=== PATIENT | female | born 1935 | race African-American/Black ===

== ENCOUNTER → 2016-07-18 | Outpatient (CLI) | payer MEDICARE, MEDICAID ==
[2016-07-18 11:16] LABS: ABSOLUTE EOSINOPHILS # (AUTO) 0.4 10^3/uL (0.0-0.6); ABSOLUTE LYMPHOCYTES (AUTO) 2.2 10^3/uL (0.5-4.7); ABSOLUTE MONOCYTES (AUTO) 0.5 10^3/uL (0.1-1.4); ABSOLUTE NEUT (AUTO) 3.7 10^3/uL (1.7-8.2); BASOPHILS % (AUTO) 0.7 % (0-2); EOSINOPHILS % (AUTO) 6.3 % (0-6); MEAN CORPUSCULAR HEMOGLOBIN 28.9 pg (27.0-33.4); MEAN CORPUSCULAR HGB CONC 32.4 g/dL (32.0-36.0); MEAN CORPUSCULAR VOLUME 89 fl (80-97); MONOCYTES % (AUTO) 6.7 % (3-13); RED BLOOD COUNT 4.14 10^6/uL (3.72-5.28); RED CELL DISTRIBUTION WIDTH 14.2 % (11.5-14.0); SEGMENTED NEUTROPHILS % (AUTO) 54.3 % (42-78); WHITE BLOOD COUNT 6.8 10^3/uL (4.0-10.5)
[2016-07-18 11:41] LABS: ALANINE AMINOTRANSFERASE 27 U/L (9-52); ALBUMIN 4.4 g/dL (3.5-5.0); ALKALINE PHOSPHATASE 73 U/L (38-126); ANION GAP 16 (5-19); ASPARTATE AMINO TRANSFERASE 24 U/L (14-36); BILIRUBIN,DIRECT 0.2 mg/dL (0.0-0.4); BILIRUBIN,TOTAL 0.7 mg/dL (0.2-1.3); BLOOD UREA NITROGEN 29 mg/dL (7-20); CALCIUM 10.3 mg/dL (8.4-10.2); CARBON DIOXIDE 21 mmol/L (22-30); CHLORIDE 109 mmol/L (98-107); CHOLESTEROL 198.29 mg/dL (0-200); CREATININE RESULT 0.92 mg/dL (0.52-1.25); Direct HDL 84 mg/dL (>40); GLUCOSE 83 mg/dL (75-110); POTASSIUM 4.6 mmol/L (3.6-5.0); SODIUM 146.2 mmol/L (137-145); TOTAL PROTEIN 7.9 g/dL (6.3-8.2); TRIGLYCERIDES 82 mg/dL (<150)
[2016-07-18 11:57] LABS: DIRECT LDL 65 mg/dL (<100)
[2016-07-19 12:38] LABS: CREATININE URINE 19.1 mg/dL (Not Estab.)
[2016-07-19 13:48] LABS: MICROALBUMIN URINE <3.0 ug/mL (Not Estab.)
== END ==
LOC: OD 10:00
PROVIDERS: ATTEND Internal Medicine
DX: I10 Essential (primary) hypertension (principal); E78.2 Mixed hyperlipidemia; Z79.899 Other long term (current) drug therapy
CPT/HCPCS: 36415; 80053; 80061; 82043; 82306; 82570; 83036; 84443; 85025

== ENCOUNTER → 2016-11-22 | Outpatient (CLI) | payer MEDICARE, MEDICAID ==
--- NOTE | 2016-11-22 16:09 | WOMENS IMAGING REPORT ---
EXAM DESCRIPTION: BILAT SCREENING MAMMO W/CAD COMPLETED DATE/TIME: 11/22/2016 10:30 am REASON FOR STUDY: SCREENING MAMMO Z12.31 Z12.31 ENCNTR SCREEN MAMMOGRAM FOR MALIGNANT NEOPLASM OF B RE COMPARISON: Multiple since 2008 TECHNIQUE: Standard craniocaudal and mediolateral oblique views of each breast recorded using DNA SEQa l acquisition. LIMITATIONS: None. FINDINGS: Findings present which are benign by mammographic criteria. No suspicious masses, calcifi cations or architectural distortion. Pertinent benign findings: Stable bilateral benign breast parenchymal nodules, benign breast parenchy mal calcifications, and arterial vascular calcifications. Read with the assistance of CAD. .[facility] - R2 Cenova Version 1.3 .[facility] Imaging - R2 Cenova Version 1.3 .[facility] - R2 Cenova Version 2.4 .[facility] [place] - R2 Cenova Version 2.4 .[facility] - R2 Ski Production Supervisor Version 9.2 Benign mammographic findings may include one or more of the following: Smooth masses, popcorn/rim/co arse calcifications, asymmetries, post-procedure changes, and lesions with long-standing stability. IMPRESSION: BENIGN MAMMOGRAPHIC FINDINGS. BIRADS 2 BREAST DENSITY: c. The breasts are heterogeneously dense, which may obscure small masses. BIRAD: 2 BENIGN FINDING(S) RECOMMENDATION: ROUTINE SCREENING Please consider bilateral screening tomosynthesis in November 2017 COMMENT: The patient has been notified of the results by letter per SA requirements. Additional no tification policies are in place for contacting patient with suspicious or incomplete findings. Quality ID #225: The [employer] recommends an annual screening mammogram for women aged 40 years or over. This facility utilizes a reminder system to ensure that all patients receive reminder letters, and/or direct phone calls for appointments. This includes reminders for routine scr eening mammograms, diagnostic mammograms, or other Breast Imaging Interventions when appropriate. Th is patient will be placed in the appropriate reminder system. The [employer] (ACR) has developed recommendations for screening MRI of the breast s in certain patient populations, to be used in conjunction with mammography. Breast MRI surveillanc e may be appropriate for women with more than 20% lifetime risk of developing breast cancer as deter mined by genetic testing, significant family history of the disease, or history of mantle radiation f or Hodgkins Disease. ACR Practice Guidelines 2008. TECHNICAL DOCUMENTATION: FINDING NUMBER: (1) ASSESSMENT: (1) JOB ID: [id number] [employer]- All Rights Reserved
== END ==
LOC: RAD 10:08
PROVIDERS: ATTEND Internal Medicine
DX: Z12.31 Encounter for screening mammogram for malignant neoplasm of breast (principal)
CPT/HCPCS: 77067; G0202

== ENCOUNTER → 2017-05-09 | Outpatient (CLI) | payer MEDICARE, MEDICAID ==
[2017-05-09 08:13] LABS: ABSOLUTE BASOPHILS # (AUTO) 0.1 10^3/uL (0.0-0.2); ABSOLUTE EOSINOPHILS # (AUTO) 0.4 10^3/uL (0.0-0.6); ABSOLUTE LYMPHOCYTES (AUTO) 2.9 10^3/uL (0.5-4.7); ABSOLUTE MONOCYTES (AUTO) 0.8 10^3/uL (0.1-1.4); ABSOLUTE NEUT (AUTO) 5.3 10^3/uL (1.7-8.2); BASOPHILS % (AUTO) 0.7 % (0-2); EOSINOPHILS % (AUTO) 4.5 % (0-6); HEMATOCRIT 35.5 % (36.0-47.0); HEMOGLOBIN 11.4 g/dL (12.0-15.5); LYMPHOCYTES % (AUTO) 30.5 % (13-45); MEAN CORPUSCULAR HEMOGLOBIN 28.8 pg (27.0-33.4); MEAN CORPUSCULAR VOLUME 90 fl (80-97); MONOCYTES % (AUTO) 8.1 % (3-13); PLATELET COUNT 279 10^3/uL (150-450); RED BLOOD COUNT 3.94 10^6/uL (3.72-5.28); RED CELL DISTRIBUTION WIDTH 13.4 % (11.5-14.0); SEGMENTED NEUTROPHILS % (AUTO) 56.2 % (42-78); TOTAL CELLS COUNTED % (AUTO) 100 %; WHITE BLOOD COUNT 9.5 10^3/uL (4.0-10.5)
[2017-05-09 08:40] LABS: ALANINE AMINOTRANSFERASE 30 U/L (9-52); ALBUMIN 4.1 g/dL (3.5-5.0); ALKALINE PHOSPHATASE 74 U/L (38-126); ANION GAP 10 (5-19); ASPARTATE AMINO TRANSFERASE 23 U/L (14-36); BILIRUBIN,DIRECT 0.2 mg/dL (0.0-0.4); BILIRUBIN,TOTAL 0.5 mg/dL (0.2-1.3); BLOOD UREA NITROGEN 39 mg/dL (7-20); CALCIUM 10.5 mg/dL (8.4-10.2); CARBON DIOXIDE 25 mmol/L (22-30); CHLORIDE 107 mmol/L (98-107); GLUCOSE 82 mg/dL (75-110); POTASSIUM 4.9 mmol/L (3.6-5.0); SODIUM 142.2 mmol/L (137-145); TOTAL PROTEIN 7.2 g/dL (6.3-8.2); TRIGLYCERIDES 65 mg/dL (<150)
[2017-05-09 08:51] LABS: DIRECT LDL 54 mg/dL (<100)
[2017-05-10 12:39] LABS: CREATININE URINE 19.5 mg/dL (Not Estab.)
[2017-05-10 13:12] LABS: MICROALBUMIN URINE <3.0 ug/mL (Not Estab.)
== END ==
LOC: OD 07:27
PROVIDERS: ATTEND Internal Medicine
DX: E78.2 Mixed hyperlipidemia (principal); I10 Essential (primary) hypertension; Z13.21 Encounter for screening for nutritional disorder; E08.42 Diabetes mellitus due to underlying condition with diabetic polyneuropathy; Z13.29 Encounter for screening for other suspected endocrine disorder
CPT/HCPCS: 36415; 80053; 80061; 82043; 82306; 82570; 83036; 84443; 85025

== ENCOUNTER → 2017-11-23 | Outpatient (CLI) | payer MEDICARE, MEDICAID ==
--- NOTE | 2017-11-23 12:15 | WOMENS IMAGING REPORT ---
EXAM DESCRIPTION: BILAT SCREENING MAMMO W/CAD COMPLETED DATE/TIME: 11/23/2017 10:44 am REASON FOR STUDY: SCREENING MAMMO Z12.31 ENCNTR SCREEN MAMMOGRAM FOR MALIGNANT NEOPLASM OF OSIRIS COMPARISON: 11/22/2016 and 11/17/2015. TECHNIQUE: Standard craniocaudal and mediolateral oblique views of each breast recorded using XYDOa l acquisition. LIMITATIONS: None. FINDINGS: Findings present which are benign by mammographic criteria. No suspicious masses, calcifi cations or architectural distortion. Pertinent benign findings: Stable circumscribed nodules and calcifications. Read with the assistance of CAD. .[facility] - R2 Cenova Version 1.3 .[facility] Imaging - R2 Cenova Version 1.3 .[facility] Imaging - R2 Cenova Version 2.4 .[facility] - R2 Cenova Version 2.4 .[facility] - R2 Bilingual Patient Support Caseworker Version 9.2 Benign mammographic findings may include one or more of the following: Smooth masses, popcorn/rim/co arse calcifications, asymmetries, post-procedure changes, and lesions with long-standing stability. IMPRESSION: BENIGN MAMMOGRAPHIC FINDINGS. BIRADS 2 BREAST DENSITY: c. The breasts are heterogeneously dense, which may obscure small masses. BIRAD: 2 BENIGN FINDING(S) RECOMMENDATION: ROUTINE SCREENING COMMENT: The patient has been notified of the results by letter per SA requirements. Additional no tification policies are in place for contacting patient with suspicious or incomplete findings. Quality ID #225: The [employer] recommends an annual screening mammogram for women aged 40 years or over. This facility utilizes a reminder system to ensure that all patients receive reminder letters, and/or direct phone calls for appointments. This includes reminders for routine scr eening mammograms, diagnostic mammograms, or other Breast Imaging Interventions when appropriate. Th is patient will be placed in the appropriate reminder system. The [employer] (ACR) has developed recommendations for screening MRI of the breast s in certain patient populations, to be used in conjunction with mammography. Breast MRI surveillanc e may be appropriate for women with more than 20% lifetime risk of developing breast cancer as deter mined by genetic testing, significant family history of the disease, or history of mantle radiation f or Hodgkins Disease. ACR Practice Guidelines 2008. TECHNICAL DOCUMENTATION: FINDING NUMBER: (1) ASSESSMENT: (1) JOB ID: [id number] [employer]- All Rights Reserved Reading location - IP/workstation name: [email or web address]
== END ==
LOC: WI 10:08
PROVIDERS: ATTEND Internal Medicine
DX: Z12.31 Encounter for screening mammogram for malignant neoplasm of breast (principal)
CPT/HCPCS: 77067

== ENCOUNTER → 2018-02-04 | Outpatient (CLI) | payer MEDICARE, MEDICAID ==
[2018-02-04 11:10] LABS: ABSOLUTE EOSINOPHILS # (AUTO) 0.2 10^3/uL (0.0-0.6); ABSOLUTE LYMPHOCYTES (AUTO) 1.8 10^3/uL (0.5-4.7); ABSOLUTE MONOCYTES (AUTO) 0.6 10^3/uL (0.1-1.4); ABSOLUTE NEUT (AUTO) 3.7 10^3/uL (1.7-8.2); BASOPHILS % (AUTO) 0.7 % (0-2); EOSINOPHILS % (AUTO) 2.8 % (0-6); HEMATOCRIT 35.4 % (36.0-47.0); HEMOGLOBIN 11.5 g/dL (12.0-15.5); LYMPHOCYTES % (AUTO) 28.8 % (13-45); MEAN CORPUSCULAR HEMOGLOBIN 28.9 pg (27.0-33.4); MEAN CORPUSCULAR HGB CONC 32.5 g/dL (32.0-36.0); MEAN CORPUSCULAR VOLUME 89 fl (80-97); MONOCYTES % (AUTO) 8.9 % (3-13); PLATELET COUNT 292 10^3/uL (150-450); RED BLOOD COUNT 3.99 10^6/uL (3.72-5.28); RED CELL DISTRIBUTION WIDTH 13.3 % (11.5-14.0); SEGMENTED NEUTROPHILS % (AUTO) 58.8 % (42-78); TOTAL CELLS COUNTED % (AUTO) 100 %; WHITE BLOOD COUNT 6.3 10^3/uL (4.0-10.5)
[2018-02-04 11:28] LABS: ALANINE AMINOTRANSFERASE 21 U/L (9-52); ALBUMIN 4.3 g/dL (3.5-5.0); ALKALINE PHOSPHATASE 70 U/L (38-126); ANION GAP 10 (5-19); ASPARTATE AMINO TRANSFERASE 22 U/L (14-36); BILIRUBIN,DIRECT 0.2 mg/dL (0.0-0.4); BILIRUBIN,TOTAL 0.6 mg/dL (0.2-1.3); BLOOD UREA NITROGEN 28 mg/dL (7-20); CALCIUM 10.3 mg/dL (8.4-10.2); CARBON DIOXIDE 28 mmol/L (22-30); CHLORIDE 103 mmol/L (98-107); CHOLESTEROL 167.68 mg/dL (0-200); GLUCOSE 99 mg/dL (75-110); SODIUM 140.9 mmol/L (137-145); TOTAL PROTEIN 7.6 g/dL (6.3-8.2); TRIGLYCERIDES 66 mg/dL (<150)
[2018-02-04 11:39] LABS: DIRECT LDL 54 mg/dL (<100)
[2018-02-04 11:44] LABS: FREE T4 (FREE THYROXINE) 1.15 ng/dL (0.78-2.19)
[2018-02-04 11:58] LABS: THYROID STIMULATING HORMONE 0.8 uIU/mL (0.47-4.68)
[2018-02-05 13:37] LABS: CREATININE URINE 30.1 mg/dL (Not Estab.); MICROALBUMIN URINE <3.0 ug/mL (Not Estab.)
== END ==
LOC: OD 09:53
PROVIDERS: ATTEND Internal Medicine
DX: E78.2 Mixed hyperlipidemia (principal); I10 Essential (primary) hypertension; Z13.21 Encounter for screening for nutritional disorder; Z13.29 Encounter for screening for other suspected endocrine disorder; E11.9 Type 2 diabetes mellitus without complications
CPT/HCPCS: 36415; 80053; 80061; 82043; 82306; 82570; 83036; 84439; 84443; 85025

== ENCOUNTER → 2018-10-04 | Outpatient (CLI) | payer MEDICARE, MEDICAID ==
[2018-10-04 08:39] LABS: ABSOLUTE EOSINOPHILS # (AUTO) 0.2 10^3/uL (0.0-0.6); ABSOLUTE MONOCYTES (AUTO) 0.6 10^3/uL (0.1-1.4); TOTAL CELLS COUNTED % (AUTO) 100 %
[2018-10-04 08:50] LABS: ABSOLUTE LYMPHOCYTES (AUTO) 1.8 10^3/uL (0.5-4.7); ABSOLUTE NEUT (AUTO) 3.8 10^3/uL (1.7-8.2); BASOPHILS % (AUTO) 0.6 % (0-2); EOSINOPHILS % (AUTO) 3.7 % (0-6); HEMATOCRIT 34.8 % (36.0-47.0); HEMOGLOBIN 11.5 g/dL (12.0-15.5); LYMPHOCYTES % (AUTO) 28.2 % (13-45); MEAN CORPUSCULAR HEMOGLOBIN 29.5 pg (27.0-33.4); MEAN CORPUSCULAR HGB CONC 32.9 g/dL (32.0-36.0); MEAN CORPUSCULAR VOLUME 90 fl (80-97); MONOCYTES % (AUTO) 8.7 % (3-13); PLATELET COUNT 272 10^3/uL (150-450); RED BLOOD COUNT 3.88 10^6/uL (3.72-5.28); RED CELL DISTRIBUTION WIDTH 13.2 % (11.5-14.0); SEGMENTED NEUTROPHILS % (AUTO) 58.8 % (42-78); WHITE BLOOD COUNT 6.4 10^3/uL (4.0-10.5)
[2018-10-04 08:59] LABS: ALANINE AMINOTRANSFERASE 25 U/L (9-52); ALBUMIN 4.3 g/dL (3.5-5.0); ALKALINE PHOSPHATASE 75 U/L (38-126); ANION GAP 10 (5-19); ASPARTATE AMINO TRANSFERASE 22 U/L (14-36); BILIRUBIN,DIRECT 0.2 mg/dL (0.0-0.4); BILIRUBIN,TOTAL 0.5 mg/dL (0.2-1.3); BLOOD UREA NITROGEN 40 mg/dL (7-20); CALCIUM 10.1 mg/dL (8.4-10.2); CARBON DIOXIDE 25 mmol/L (22-30); CHLORIDE 107 mmol/L (98-107); CHOLESTEROL 173.72 mg/dL (0-200); GLUCOSE 84 mg/dL (75-110); POTASSIUM 4.3 mmol/L (3.6-5.0); SODIUM 141.6 mmol/L (137-145); TOTAL PROTEIN 7.5 g/dL (6.3-8.2); TRIGLYCERIDES 68 mg/dL (<150)
[2018-10-04 09:10] LABS: DIRECT LDL 58 mg/dL (<100)
[2018-10-04 09:14] LABS: FREE T4 (FREE THYROXINE) 1.31 ng/dL (0.78-2.19)
[2018-10-04 09:28] LABS: THYROID STIMULATING HORMONE 0.96 uIU/mL (0.47-4.68)
[2018-10-05 10:37] LABS: CREATININE URINE 22.1 mg/dL (Not Estab.); MICROALBUMIN URINE 15.6 ug/mL (Not Estab.)
== END ==
LOC: OD 07:31
PROVIDERS: ATTEND Internal Medicine
DX: Z00.00 Encounter for general adult medical examination without abnormal findings (principal); Z13.21 Encounter for screening for nutritional disorder; E11.9 Type 2 diabetes mellitus without complications; E78.2 Mixed hyperlipidemia; I10 Essential (primary) hypertension
CPT/HCPCS: 36415; 80053; 80061; 82043; 82306; 82570; 83036; 84439; 84443; 85025

== ENCOUNTER → 2018-11-28 | Outpatient (CLI) | payer MEDICARE, MEDICAID ==
--- NOTE | 2018-11-28 14:36 | WOMENS IMAGING REPORT ---
EXAM DESCRIPTION: BILAT SCREENING MAMMO W/CAD COMPLETED DATE/TIME: 11/28/2018 10:09 am REASON FOR STUDY: Z12.31ENCOUNTER FOR SCREENING MAMMOGRAM FOR MALIGNANT NEOPLASM OF BREAST Z12.31 E NCNTR SCREEN MAMMOGRAM FOR MALIGNANT NEOPLASM OF OSIRIS COMPARISON: 11/23/2017 and 11/22/2016. EXAM PARAMETERS: Standard craniocaudal and mediolateral oblique views of each breast recorded using digital acquisition. Read with the assistance of CAD. .[facility] - Hr Business Partner Consultant Version 9.2 LIMITATIONS: None. FINDINGS: Findings present which are benign by mammographic criteria. No suspicious masses, calcifi cations or architectural distortion. Pertinent benign findings: Benign calcifications. Benign mammographic findings may include one or more of the following: Smooth masses, popcorn/rim/co arse calcifications, asymmetries, post-procedure changes, and lesions with long-standing stability. IMPRESSION: BENIGN MAMMOGRAPHIC FINDINGS. BIRADS 2 BREAST DENSITY: c. The breasts are heterogeneously dense, which may obscure small masses. BIRAD: ASSESSMENT: 2 BENIGN FINDING(S) RECOMMENDATION: ROUTINE SCREENING COMMENT: The patient has been notified of the results by letter per SA requirements. Additional no tification policies are in place for contacting patient with suspicious or incomplete findings. Quality ID #225: The [employer] recommends an annual screening mammogram for women aged 40 years or over. This facility utilizes a reminder system to ensure that all patients receive reminder letters, and/or direct phone calls for appointments. This includes reminders for routine scr eening mammograms, diagnostic mammograms, or other Breast Imaging Interventions when appropriate. Th is patient will be placed in the appropriate reminder system. TECHNICAL DOCUMENTATION: FINDING NUMBER: (1) ASSESSMENT: (1) JOB ID: [id number] [employer]- All Rights Reserved Reading location - IP/workstation name: [facility]NAGER DAT[facility]RI[email or web address]
== END ==
LOC: WI 09:40
PROVIDERS: ATTEND Internal Medicine
DX: Z12.31 Encounter for screening mammogram for malignant neoplasm of breast (principal)
CPT/HCPCS: 77067

== ENCOUNTER 2019-04-29 19:57 | Emergency (ER) | payer MEDICARE, MEDICAID ==
--- NOTE | 2019-04-29 20:37 | ER Document Report ---
HPI - HPI Time Seen by Provider: 04/29/19 20:18 Pain Level: 0 Notes: 84-year-old female patient presents to the emergency department with her daughter with concerns for high blood pressure. Patient apparently takes antihypertensives, she has been seeing her primary care for this and he recently changed her from oral clonidine to transdermal clonidine. She states that earlier this afternoon her blood pressure was high at home. Today in the emergency department her blood pressure is normal. She denies any chest pain, shortness of breath or headache. She states that she overall feels very well. - REPRODUCTIVE Reproductive: DENIES: : Past Medical History - General Information source: Patient - Social History Smoking Status: Never Smoker Chew tobacco use (# tins/day): No Drug Abuse: None Family History: Reviewed & Not Pertinent Patient has suicidal ideation: No Patient has homicidal ideation: No - Past Medical History Cardiac Medical History: Reports: Hx Hypertension Endocrine Medical History: Reports: Hx Diabetes Mellitus Type 2 Musculoskeletal Medical History: Reports Hx Arthritis - Immunizations Hx Diphtheria, Pertussis, Tetanus Vaccination: No Vertical Provider Document - CONSTITUTIONAL Notes: PHYSICAL EXAMINATION: GENERAL: Well-appearing, appears younger than stated age, well-nourished and in no acute distress. HEAD: Atraumatic, normocephalic. EYES: Pupils equal round and reactive to light, extraocular movements intact, conjunctiva are normal. ENT: Nares patent, oropharynx clear without exudates. Moist mucous membranes. NECK: Normal range of motion, supple without lymphadenopathy LUNGS: Breath sounds clear to auscultation bilaterally and equal. No wheezes rales or rhonchi. HEART: Regular rate and rhythm without murmurs ABDOMEN: Soft, nontender. Female : deferred Musculoskeletal: Normal range of motion, no pitting or edema. No cyanosis. NEUROLOGICAL: Cranial nerves grossly intact. Normal speech, normal gait. Normal sensory, motor exams PSYCH: Normal mood, normal affect. SKIN: Warm, Dry, normal turgor, no rashes or lesions noted. - INFECTION CONTROL TRAVEL OUTSIDE OF THE [place] IN LAST 30 DAYS: No Course - Re-evaluation Re-evalutation: Overall very well-appearing 84-year-old female who has asymptomatic hypertension. Today her blood pressure was initially 140 systolic. I did repeat this myself and got another that was 150 systolic. Patient denies any chest pain, shortness of breath or headache. She states that she feels well. Lengthy discussion was had with patient and daughter, I also discussed this with my attending physician. We will not need to draw labs or do any work-up at this time. The most appropriate thing for her to do is to go back to her primary child care aide for further management of her chronic hypertension. Patient and family member verbalized understanding and agreement with this plan. - Vital Signs Vital signs: Temp Pulse Resp BP Pulse Ox 98.3 F 72 18 144/82 H 97 04/29/19 20:04 04/29/19 20:04 04/29/19 20:04 04/29/19 20:04 04/29/19 20:04 Discharge - Discharge Clinical Impression: Elevated blood pressure reading Condition: Stable Disposition: HOME, SELF-CARE Additional Instructions: You were seen in the emergency department with concerns of elevated blood pressure. Today in the emergency department your blood pressure readings were not in the danger zone. Please call your primary care provider tomorrow to schedule a follow-up. That is the most appropriate way to manage your blood pressure. If you become symptomatic that is having chest pain, shortness of breath or headache please return to the emergency department. Referrals: CHARITY ANDRES MD [Primary Care Provider] - Follow up as needed
[2019-04-29 20:39] VITALS: BP 164/62
== END 2019-04-29 20:42 | disposition home or self-care (01) ==
LOC: ER 19:57
DX: I10 Essential (primary) hypertension (principal); E11.9 Type 2 diabetes mellitus without complications; Z79.899 Other long term (current) drug therapy
CPT/HCPCS: 99283

== ENCOUNTER 2019-05-15 12:51 | Emergency (ER) | payer MEDICARE, MEDICAID ==
--- NOTE | 2019-05-15 13:40 | ER Document Report ---
ED Medical Screen (RME) - General Chief Complaint: Blood Pressure Problem Stated Complaint: HIGH BLOOD PRESSURE Time Seen by Provider: 05/15/19 13:32 Primary Care Provider: CHARITY ANDRES MD [Primary Care Provider] - Follow up as needed TRAVEL OUTSIDE OF THE [place] IN LAST 30 DAYS: No - HPI Notes: 05/15/19 13:42 84-year-old female to the emergency department with daughter with complaints of poorly controlled blood pressure for the past month. She states that her blood pressure started to run in the 226 I like the beginning of the month and her primary care physician has been trying to get it under control. She does have a history of high blood pressure and was controlled on losartan and HCTZ. However once her blood pressure was not well controlled she has been having some difficulty finding a medicine that works for her that does not give her side effects. She initially was placed on clonidine tablets and then switched to clonidine patch. These did not work. Most recently about a week ago her primary care physician put her on labetalol but that also did not help and she had side effects. She was then started on metoprolol several days ago. She states that despite all these changes her blood pressure is still not been well controlled and last night she started to have symptoms that were concerning. She states that she is dizzy and she feels like her tongue is heavy. She also states that she has shortness of breath. She states that she has had some difficulty with her speech for about a month now but she feels like it may be has been getting worse over the past week. She admits to episode of chest pain on this past Sunday but none since. I performed a brief medical screening exam on the patient determined that she will need further evaluation and management by main side provider. I have initiated orders to help expedite her care. - Related Data Allergies/Adverse Reactions: No Known Allergies Allergy (Verified 05/15/19 13:29) Past Medical History - Past Medical History Cardiac Medical History: Reports: Hx Hypertension Endocrine Medical History: Reports: Hx Diabetes Mellitus Type 2 Musculoskeltal Medical History: Reports Hx Arthritis - Immunizations Hx Diphtheria, Pertussis, Tetanus Vaccination: No Physical Exam - Vital signs Vitals: Temp Pulse Resp BP Pulse Ox 98.0 F 93 16 206/96 H 95 05/15/19 13:03 05/15/19 13:03 05/15/19 13:03 05/15/19 13:03 05/15/19 13:03 Course - Vital Signs Vital signs: Temp Pulse Resp BP Pulse Ox 98.0 F 93 16 206/96 H 95 05/15/19 13:03 05/15/19 13:03 05/15/19 13:03 05/15/19 13:03 05/15/19 13:03 Doctor's Discharge - Discharge Referrals: CHARITY ANDRES MD [Primary Care Provider] - Follow up as needed
--- NOTE | 2019-05-15 14:25 | RADIOLOGY REPORT (SQ) ---
EXAM DESCRIPTION: CT HEAD WITHOUT COMPLETED DATE/TIME: 05/15/2019 2:13 pm REASON FOR STUDY: elevated BP, lightheadedness, tongue heaviness COMPARISON: 11/21/2013 TECHNIQUE: Axial images acquired through the brain without intravenous contrast. Images reviewed wi th bone, brain and subdural windows. Additional sagittal and coronal reconstructions were generated. Images stored on PACS. All CT scanners at this facility use dose modulation, iterative reconstruction, and/or weight based d osing when appropriate to reduce radiation dose to as low as reasonably achievable (ALARA). [facility]: Dose Right [facility]: CareDose [facility]: Dose Right [facility]: Teradose 4D [facility]: Smart Alive Juices RADIATION DOSE: CT Rad equipment meets quality standard of care and radiation dose reduction techniq ues were employed. CTDIvol: 53.2 mGy. DLP: 1044 mGy-cm. mGy. LIMITATIONS: None. FINDINGS: VENTRICLES: Normal size and contour. CEREBRUM: No masses. No hemorrhage. No midline shift. No evidence for acute infarction. Few scatte red areas of low density in the white matter most likely chronic small vessel ischemic changes. CEREBELLUM: No masses. No hemorrhage. No alteration of density. No evidence for acute infarction. EXTRAAXIAL SPACES: No fluid collections. No masses. ORBITS AND GLOBE: No intra- or extraconal masses. Normal contour of globe without masses. CALVARIUM: No fracture. PARANASAL SINUSES: No fluid or mucosal thickening. SOFT TISSUES: No mass or hematoma. OTHER: No other significant finding. IMPRESSION: MILD CHRONIC MICROVASCULAR ISCHEMIA. NO ACUTE IMAGING FINDINGS IN THE BRAIN. EVIDENCE OF ACUTE STROKE: NO. COMMENT: Quality ID # [id number]: Final reports with documentation of one or more dose reduction techniques (e.g., Automated exposure control, adjustment of the mA and/or kV according to patient size, use of iterative reconstruction technique) TECHNICAL DOCUMENTATION: JOB ID: [id number] [employer]- All Rights Reserved Reading location - IP/workstation name: [email or web address]
--- NOTE | 2019-05-15 14:32 | RADIOLOGY REPORT (SQ) ---
EXAM DESCRIPTION: CHEST 2 VIEWS COMPLETED DATE/TIME: 05/15/2019 2:21 pm REASON FOR STUDY: SOB, chest pain, elevated BP COMPARISON: 11/21/2013 EXAM PARAMETERS: NUMBER OF VIEWS: two views TECHNIQUE: Digital Frontal and Lateral radiographic views of the chest acquired. RADIATION DOSE: NA LIMITATIONS: none FINDINGS: LUNGS AND PLEURA: No opacities, masses or pneumothorax. No pleural effusion. MEDIASTINUM AND HILAR STRUCTURES: No masses or contour abnormalities. HEART AND VASCULAR STRUCTURES: Heart normal size. No evidence for failure. BONES: No acute findings. HARDWARE: None in the chest. OTHER: No other significant finding. IMPRESSION: NO ACUTE RADIOGRAPHIC FINDING IN THE CHEST. TECHNICAL DOCUMENTATION: JOB ID: [id number] [employer]- All Rights Reserved Reading location - IP/workstation name: [email or web address]
[2019-05-15 14:43] LABS: ABSOLUTE EOSINOPHILS # (AUTO) 0.1 10^3/uL (0.0-0.6); EOSINOPHILS % (AUTO) 1.3 % (0-6); TOTAL CELLS COUNTED % (AUTO) 100 %
[2019-05-15 14:48] LABS: ABSOLUTE BASOPHILS # (AUTO) 0.1 10^3/uL (0.0-0.2); ABSOLUTE LYMPHOCYTES (AUTO) 2.2 10^3/uL (0.5-4.7); ABSOLUTE MONOCYTES (AUTO) 0.7 10^3/uL (0.1-1.4); ABSOLUTE NEUT (AUTO) 3.7 10^3/uL (1.7-8.2); BASOPHILS % (AUTO) 0.9 % (0-2); HEMATOCRIT 35.6 % (36.0-47.0); LYMPHOCYTES % (AUTO) 32.5 % (13-45); MEAN CORPUSCULAR HEMOGLOBIN 29.7 pg (27.0-33.4); MEAN CORPUSCULAR HGB CONC 33.7 g/dL (32.0-36.0); MEAN CORPUSCULAR VOLUME 88 fl (80-97); MONOCYTES % (AUTO) 10.4 % (3-13); PLATELET COUNT 317 10^3/uL (150-450); RED BLOOD COUNT 4.03 10^6/uL (3.72-5.28); RED CELL DISTRIBUTION WIDTH 13.4 % (11.5-14.0); SEGMENTED NEUTROPHILS % (AUTO) 54.9 % (42-78); WHITE BLOOD COUNT 6.7 10^3/uL (4.0-10.5)
[2019-05-15 14:53] LABS: INTERNATIONAL RATION (INR) 1.04; PROTHROMBIN TIME 13.6 SEC (11.4-15.4)
[2019-05-15 14:54] LABS: PARTIAL THROMBOPLASTIN TIME 29.6 SEC (23.5-35.8)
[2019-05-15 15:05] LABS: ALBUMIN 4.5 g/dL (3.5-5.0); ALKALINE PHOSPHATASE 72 U/L (38-126); ANION GAP 11 (5-19); ASPARTATE AMINO TRANSFERASE 30 U/L (14-36); BILIRUBIN,DIRECT 0.2 mg/dL (0.0-0.4); BILIRUBIN,TOTAL 0.6 mg/dL (0.2-1.3); BLOOD UREA NITROGEN 23 mg/dL (7-20); CALCIUM 10.8 mg/dL (8.4-10.2); CARBON DIOXIDE 29 mmol/L (22-30); CHLORIDE 93 mmol/L (98-107); GLUCOSE 110 mg/dL (75-110); POTASSIUM 4.5 mmol/L (3.6-5.0)
[2019-05-15] MEDS ORDERED: METOPROLOL TARTRATE 50 MG TABLET PO ONE (20:07)
--- NOTE | 2019-05-15 20:51 | ER Document Report ---
ED Blood Pressure Problem - General Chief Complaint: Blood Pressure Problem Stated Complaint: HIGH BLOOD PRESSURE Time Seen by Provider: 05/15/19 13:32 Primary Care Provider: CHARITY ANDRES MD [Primary Care Provider] - Follow up as needed Notes: Patient is a 84-year-old female with a history of hypertension who presents to the emergency department with elevated blood pressure. Patient reports her blood pressure was elevated earlier today. She reports that she did not take her metoprolol that was newly prescribed to her on Sunday because she was seeing ants. Patient reports she has been hallucinating seeing ants intermittently over the past month. She states that due to her uncontrolled blood pressure and hallucinations that her primary care physician has switched her blood pressure medications multiple times. The last which was on Sunday. The daughter states that she was supposed to start metoprolol 50 mg twice daily for 3 days and to increase 100 mg twice daily tomorrow which is Sunday. She re ports today that the patient did not take her metoprolol as she felt like she was seeing ants and that this was a side effect. Patient initially in triage had said she was feeling weak and more fatigued. Patient told me at this time this is not true that she was just concerned that she was seeing ants and that her family was not believing her. Patient denies fever, nausea, vomiting or diarrhea. Patient does report some urinary frequency. Patient reports over the past month she will have intermittent episodes of a weird sensation around her mouth. Patient reports this did happen earlier today. TRAVEL OUTSIDE OF THE [place] IN LAST 30 DAYS: No - Related Data Allergies/Adverse Reactions: No Known Allergies Allergy (Verified 05/15/19 13:29) Past Medical History - Social History Smoking Status: Unknown if Ever Smoked Chew tobacco use (# tins/day): No Frequency of alcohol use: None Drug Abuse: None Family History: Reviewed & Not Pertinent Patient has suicidal ideation: No Patient has homicidal ideation: No - Past Medical History Cardiac Medical History: Reports: Hx Hypertension Endocrine Medical History: Reports: Hx Diabetes Mellitus Type 2 Musculoskeletal Medical History: Reports Hx Arthritis - Immunizations Hx Diphtheria, Pertussis, Tetanus Vaccination: No Review of Systems - Review of Systems Constitutional: No symptoms reported EENT: No symptoms reported Cardiovascular: Other - Elevated BP Respiratory: No symptoms reported Gastrointestinal: No symptoms reported Genitourinary: No symptoms reported Female Genitourinary: No symptoms reported Musculoskeletal: No symptoms reported Skin: No symptoms reported Hematologic/Lymphatic: No symptoms reported Neurological/Psychological: No symptoms reported Physical Exam - Vital signs Vitals: Temp Pulse Resp BP Pulse Ox 98.0 F 93 16 206/96 H 95 05/15/19 13:03 05/15/19 13:03 05/15/19 13:03 05/15/19 13:03 05/15/19 13:03 Interpretation: Hypertensive - Notes Notes: GENERAL: Well-appearing, well-nourished and in no acute distress. HEAD: Atraumatic, normocephalic. EYES: Pupils equal round and reactive to light, extraocular movements intact, sclera anicteric, conjunctiva are normal. Eyeglasses present. ENT: Nares patent, oropharynx clear without exudates. Moist mucous membranes. NECK: Normal range of motion, supple without lymphadenopathy or JVD. LUNGS: Breath sounds clear to auscultation bilaterally and equal. No wheezes rales or rhonchi. HEART: Regular rate and rhythm without murmurs, rubs or gallops. No reproducible chest wall pain. ABDOMEN: Soft, flat, nontender, normoactive bowel sounds. No guarding, no rebound. No masses appreciated. BACK: No cervical, thoracic, lumbar midline tenderness. No saddle anesthesia, normal distal neurovascular exam. GENITOURINARY: Deferred. EXTREMITIES: Normal range of motion, no pitting or edema. No clubbing or cyanosis. NEUROLOGICAL: Cranial nerves II through XII grossly intact. Normal speech, normal gait. PSYCH: Normal mood, normal affect. SKIN: Warm, Dry, normal turgor, no rashes or lesions noted. Course - Re-evaluation Re-evalutation: 05/15/19 20:45 After a long discussion with the patient and her family member it appears that the patient has been battling elevated blood pressure over the past 6 weeks. Balaji lopez have been to the primary care physician Dr. Andres multiple times for medication changes. She reports that the labetalol, clonidine, clonidine patch and metoprolol have caused her to see tiny ants. Patient reports she has seen tiny ants and hallucinating over the past month, this is not new and was thought to be a side effect of her medication. Patient denies narcotic pain medication. She reports Dr. Andres is aware of this and this is why she has been changing her blood pressure medication. Patient reports she started metoprolol 50 mg twice daily on Sunday. She did not take this today as she thought that is why she was seeing marsha. I did inform her that is most likely not due to the blood pressure medication that something else that needed to be further worked up. I did inform the patient and family that the CT scan was negative for any acute problem, as well as a negative chest x-ray. We will obtain a urinalysis as the patient does report urinary frequency. We will give a dose of metoprolol 50 mg here in the emergency department as she has not had any of that medication today. It was initially reported in triage that she was feeling weak and more fatigued. Patient states that this is not true. Patient reports her biggest concern is that she is seeing marsha. Patient is alert and oriented x3. I did recommend that she continue taking the metoprolol as prescribed by her primary care physician and to call his office tomorrow for a follow-up appointment. Family and patient verbalized understanding. We will give patient food, dose of metoprolol and obtain a urinalysis. Patient denies chest pain or shortness of breath. Patient is in no acute distress and is nontoxic-appearing. 05/15/19 22:55 Patient's urinalysis was unremarkable. Patient's blood pressure currently systolic in the 160s. Patient is asymptomatic denies chest pain, denies dizziness, denies headache, denies shortness of breath. Patient states that this morning when she called Dr. Andres office she was concerned because her blood pressure was over 200. Patient reports she did not take the metoprolol at all today. I did inform her to continue taking her medications as prescribed by her physician tomorrow. I did explain in detail with the family and her to follow-up with the primary care physician. Patient given strict return precautions. 05/15/19 22:58 Patient is mentating appropriately and is alert and oriented x3. Speech is clear and appropriate. Patient stable for discharge at this time. - Vital Signs Vital signs: Temp Pulse Resp BP Pulse Ox 98.1 F 93 20 160/68 H 100 05/15/19 22:56 05/15/19 13:03 05/15/19 22:39 05/15/19 22:39 01/30/20 22:39 - Laboratory Result Diagrams: 01/30/20 14:25 05/15/19 14:25 Laboratory results interpreted by me: 05/15/19 05/15/19 14:25 14:25 Hct 35.6 L Sodium 132.9 L Chloride 93 L BUN 23 H Est GFR ( Amer) 58 L Est GFR (MDRD) Non-Af 48 L Calcium 10.8 H 05/15/19 20:45 Patient's lab work did not show a significant leukocytosis or anemia. Patient does have a slightly low sodium at 132.9. BUN/creatinine unremarkable. Patient troponin was negative. Laboratory 05/15/19 05/15/19 05/15/19 14:25 14:25 14:25 WBC 6.7 RBC 4.03 Hgb 12.0 Hct 35.6 L MCV 88 MCH 29.7 MCHC 33.7 RDW 13.4 Plt Count 317 Lymph % (Auto) 32.5 Hemphill % (Auto) 10.4 Eos % (Auto) 1.3 Baso % (Auto) 0.9 Absolute Neuts (auto) 3.7 Absolute Lymphs (auto) 2.2 Absolute Monos (auto) 0.7 Absolute Eos (auto) 0.1 Absolute Basos (auto) 0.1 Seg Neutrophils % 54.9 PT INR APTT Sodium 132.9 L Potassium 4.5 Chloride 93 L Carbon Dioxide 29 Anion Gap 11 BUN 23 H Creatinine 1.08 Est GFR ( Amer) 58 L Est GFR (MDRD) Non-Af 48 L Glucose 110 Calcium 10.8 H Magnesium 1.8 Total Bilirubin 0.6 Direct Bilirubin 0.2 Neonat Total Bilirubin Not Reportable Neonat Direct Bilirubin Not Reportable Neonat Indirect Bili Not Reportable AST 30 ALT 25 Alkaline Phosphatase 72 Troponin I < 0.012 Total Protein 8.0 Albumin 4.5 05/15/19 14:25 WBC RBC Hgb Hct MCV MCH MCHC RDW Plt Count Lymph % (Auto) Hemphill % (Auto) Eos % (Auto) Baso % (Auto) Absolute Neuts (auto) Absolute Lymphs (auto) Absolute Monos (auto) Absolute Eos (auto) Absolute Basos (auto) Seg Neutrophils % PT 13.6 INR 1.04 APTT 29.6 Sodium Potassium Chloride Carbon Dioxide Anion Gap BUN Creatinine Est GFR ( Amer) Est GFR (MDRD) Non-Af Glucose Calcium Magnesium Total Bilirubin Direct Bilirubin Neonat Total Bilirubin Neonat Direct Bilirubin Neonat Indirect Bili AST ALT Alkaline Phosphatase Troponin I Total Protein Albumin - Diagnostic Test Radiology reviewed: Reports reviewed Radiology results interpreted by me: 05/15/19 20:45 Chest X-Ray 05/15/19 13:41 IMPRESSION: NO ACUTE RADIOGRAPHIC FINDING IN THE CHEST. Head CT 05/15/19 13:41 IMPRESSION: MILD CHRONIC MICROVASCULAR ISCHEMIA. NO ACUTE IMAGING FINDINGS IN THE BRAIN. EVIDENCE OF ACUTE STROKE: NO. - EKG Interpretation by Me Additional EKG results interpreted by me: 05/15/19 22:56 Patient's EKG shows a sinus rhythm with a heart rate of 82. Patient's VT interval 180, QT is 4 4 and QTC is 472. Patient has a right bundle branch block which is present on the previous EKG in 2013. EKG has no significant changes from the old EKG. I did show this to my supervising attending physician Dr. Freire who agrees. Discharge - Discharge Clinical Impression: Hypertension Qualifiers: Hypertension type: unspecified Qualified Code(s): I10 - Essential (primary) hypertension Condition: Stable Disposition: HOME, SELF-CARE Additional Instructions: *Today was seen in the emergency department for high blood pressure. We did give your nightly dose of metoprolol at 50 mg. Please restart your metoprolol tomorrow as previously prescribed by your physician. Your blood work, chest x- ray, head CT did not show any acute problem. Your urinalysis was unremarkable and did not show signs of infection. You have been asymptomatic since being here in the emergency department. I do recommend following up with your primary care physician and call in his office tomorrow to schedule an appointment. Please return to the emergency department if you develop any new symptoms such as headache, chest pain, shortness of breath, increased weakness. *Please make sure that you are adequately staying hydrated and eating a well- balanced diet. This will help with weakness. Referrals: CHARITY ANDRES MD [Primary Care Provider] - Follow up as needed
[2019-05-15 22:05] LABS: APPEARANCE,URINE CLEAR; BILIRUBIN,URINE NEGATIVE (NEGATIVE); COLOR,URINE YELLOW; GLUCOSE, URINE NEGATIVE (NEGATIVE); KETONES,URINE NEGATIVE (NEGATIVE); LEUKOCYTE ESTERASE,URINE NEGATIVE (NEGATIVE); NITRITE,URINE NEGATIVE (NEGATIVE); PROTEIN,URINE NEGATIVE (NEGATIVE); URINE SPECIFIC GRAVITY 1.005; UROBILINOGEN,URINE NEGATIVE mg/dL (<2.0)
[2019-05-15 22:55] VITALS: BP 160/68
--- NOTE | 2019-05-16 13:00 | EKG REPORT ---
SEVERITY:- ABNORMAL ECG - SINUS RHYTHM LEFT ATRIAL ABNORMALITY RIGHT BUNDLE BRANCH BLOCK PROBABLE INFERIOR INFARCT, AGE INDETERMINATE : Confirmed by: Andrzej Palma 16-May-2019 12:59:16
== END 2019-05-15 23:09 | disposition home or self-care (01) ==
LOC: ER 12:51
DX: I10 Essential (primary) hypertension (principal); R44.3 Hallucinations, unspecified; E11.9 Type 2 diabetes mellitus without complications
CPT/HCPCS: 93005; 99284; 36415; 83735; 85025; 85610; 85730; 80053; 81001; 84484; 71046; 70450; 93010; A9270

== ENCOUNTER 2019-05-17 12:35 | Emergency (ER) | payer MEDICARE, MEDICAID ==
--- NOTE | 2019-05-17 13:21 | ER Document Report ---
ED Medical Screen (RME) - General Chief Complaint: Chest Pain Stated Complaint: CHEST PAIN Time Seen by Provider: 05/17/19 13:09 Primary Care Provider: CHARITY ANDRES MD [Primary Care Provider] - Follow up as needed TRAVEL OUTSIDE OF THE [place] IN LAST 30 DAYS: No - HPI Notes: 05/17/19 13:19 84-year-old female to the emergency department for her second visit this week with complaints of chest pain, chest palpitations, elevated blood pressure. She was seen on May 15 for elevated blood pressure. She has been having difficulty with her blood pressure for over a month. She has been running in the 200s despite her primary care physician trying to adjust her blood pressure medicines. She states that she was sent home and told to continue to take her medicines as prescribed. She states that since being sent home she started to experience palpitations and chest pain. She denies any shortness of breath. She states that her legs are swollen. Her daughter who is with her states her legs are swollen on a regular basis but may be seem a little bit more swollen than normal. I performed a brief medical screening exam on the patient determined that she will need further evaluation by me inside provider. I placed initial orders to help expedite her care. - Related Data Allergies/Adverse Reactions: No Known Allergies Allergy (Verified 05/17/19 13:00) Past Medical History - Social History Chew tobacco use (# tins/day): No Frequency of alcohol use: None Drug Abuse: None - Past Medical History Cardiac Medical History: Reports: Hx Hypertension Endocrine Medical History: Reports: Hx Diabetes Mellitus Type 2 Musculoskeltal Medical History: Reports Hx Arthritis - Immunizations Hx Diphtheria, Pertussis, Tetanus Vaccination: No Physical Exam - Vital signs Vitals: Temp Pulse Resp BP Pulse Ox 98.4 F 66 18 210/93 H 99 05/17/19 12:50 05/17/19 12:50 05/17/19 12:50 05/17/19 12:50 05/17/19 12:50 Course - Vital Signs Vital signs: Temp Pulse Resp BP Pulse Ox 98.4 F 66 18 210/93 H 99 05/17/19 12:50 05/17/19 12:50 05/17/19 12:50 05/17/19 12:50 05/17/19 12:50 Doctor's Discharge - Discharge Referrals: CHARITY ANDRES MD [Primary Care Provider] - Follow up as needed
[2019-05-17 13:46] LABS: ABSOLUTE BASOPHILS # (AUTO) 0.1 10^3/uL (0.0-0.2); ABSOLUTE EOSINOPHILS # (AUTO) 0.2 10^3/uL (0.0-0.6); ABSOLUTE MONOCYTES (AUTO) 0.6 10^3/uL (0.1-1.4); BASOPHILS % (AUTO) 0.8 % (0-2); EOSINOPHILS % (AUTO) 2.3 % (0-6); HEMATOCRIT 33.9 % (36.0-47.0); HEMOGLOBIN 11.6 g/dL (12.0-15.5); MEAN CORPUSCULAR HEMOGLOBIN 30.2 pg (27.0-33.4); MEAN CORPUSCULAR HGB CONC 34.4 g/dL (32.0-36.0); MEAN CORPUSCULAR VOLUME 88 fl (80-97); MONOCYTES % (AUTO) 8.3 % (3-13); PLATELET COUNT 324 10^3/uL (150-450); RED BLOOD COUNT 3.86 10^6/uL (3.72-5.28); RED CELL DISTRIBUTION WIDTH 13.8 % (11.5-14.0); SEGMENTED NEUTROPHILS % (AUTO) 59.6 % (42-78); TOTAL CELLS COUNTED % (AUTO) 100 %; WHITE BLOOD COUNT 6.7 10^3/uL (4.0-10.5)
--- NOTE | 2019-05-17 13:51 | RADIOLOGY REPORT (SQ) ---
EXAM DESCRIPTION: CHEST SINGLE VIEW COMPLETED DATE/TIME: 05/17/2019 1:41 pm REASON FOR STUDY: chest pain COMPARISON: 05/15/2019 EXAM PARAMETERS: NUMBER OF VIEWS: One view. TECHNIQUE: Single frontal radiographic view of the chest acquired. RADIATION DOSE: NA LIMITATIONS: None. FINDINGS: LUNGS AND PLEURA: No opacities, masses or pneumothorax. No pleural effusion. MEDIASTINUM AND HILAR STRUCTURES: No masses. Contour normal. HEART AND VASCULAR STRUCTURES: Heart normal in size. Normal vasculature. BONES: No acute findings. HARDWARE: None in the chest. OTHER: No other significant finding. IMPRESSION: NO ACUTE RADIOGRAPHIC FINDING IN THE CHEST. TECHNICAL DOCUMENTATION: JOB ID: [id number] [employer]- All Rights Reserved Reading location - IP/workstation name: [email or web address]
[2019-05-17 14:06] LABS: ALBUMIN 4.2 g/dL (3.5-5.0); ALKALINE PHOSPHATASE 70 U/L (38-126); ANION GAP 11 (5-19); ASPARTATE AMINO TRANSFERASE 30 U/L (14-36); BILIRUBIN,TOTAL 0.6 mg/dL (0.2-1.3); BLOOD UREA NITROGEN 25 mg/dL (7-20); CALCIUM 9.9 mg/dL (8.4-10.2); CARBON DIOXIDE 27 mmol/L (22-30); CHLORIDE 90 mmol/L (98-107); GLUCOSE 88 mg/dL (75-110); POTASSIUM 4.4 mmol/L (3.6-5.0); TOTAL PROTEIN 7.4 g/dL (6.3-8.2)
[2019-05-17 14:18] LABS: NT PRO BNP 143 pg/mL (<450)
[2019-05-17 14:26] LABS: TROPONIN I < 0.012 ng/mL
[2019-05-17] MEDS ORDERED: DILTIAZEM HCL INJ 25 MG/5 ML VIAL IV ONE ×2 (15:41→18:30)
--- NOTE | 2019-05-17 15:47 | ER Document Report ---
ED General - General Chief Complaint: Chest Pain Stated Complaint: CHEST PAIN Time Seen by Provider: 05/17/19 13:09 Primary Care Provider: CHARITY ANDRES MD [Primary Care Provider] - Follow up as needed Information source: Patient, Relative - And per daughter named Emma lives with her Notes: 84-year-old black female arrives by POV with her daughter with chief complaint of having increased blood pressure over the last 6 weeks. Her personal doctor has taken her off of the oral pill Catapres and Catapres patch because of visual hallucinations around 1 week ago. Her PMD had taken her off of amlodipine because of bilateral leg edema. Patient denies any shortness of breath or chest pain today. She only wants her blood pressure decreased. She cannot understand why her doctors cannot get the blood pressures corrected on her. She has been taking her metoprolol. She took it this morning when her blood pressure was 200 systolic. TRAVEL OUTSIDE OF THE [place] IN LAST 30 DAYS: No - HPI Onset: Other - 6 weeks but visual hallucinations for 1 weeks after she was taken off of oral Catapres and Catapres patch. - Related Data Allergies/Adverse Reactions: No Known Allergies Allergy (Verified 05/17/19 13:00) Past Medical History - General Information source: Patient, Relative - Social History Smoking Status: Never Smoker Cigarette use (# per day): No Chew tobacco use (# tins/day): No Smoking Education Provided: No Frequency of alcohol use: None Drug Abuse: None Lives with: Family Family History: Reviewed & Not Pertinent Patient has suicidal ideation: No Patient has homicidal ideation: No - Past Medical History Cardiac Medical History: Reports: Hx Hypertension Endocrine Medical History: Reports: Hx Diabetes Mellitus Type 2 Musculoskeletal Medical History: Reports Hx Arthritis - Immunizations Hx Diphtheria, Pertussis, Tetanus Vaccination: No Review of Systems - Review of Systems Constitutional: No symptoms reported EENT: See HPI, Other - Hallucinations Cardiovascular: See HPI, Palpitations Respiratory: No symptoms reported Gastrointestinal: No symptoms reported Genitourinary: No symptoms reported Female Genitourinary: No symptoms reported Musculoskeletal: No symptoms reported Skin: No symptoms reported Hematologic/Lymphatic: No symptoms reported Neurological/Psychological: No symptoms reported Physical Exam - Vital signs Vitals: Temp Pulse Resp BP Pulse Ox 98.4 F 66 18 210/93 H 99 05/17/19 12:50 05/17/19 12:50 05/17/19 12:50 05/17/19 12:50 05/17/19 12:50 Interpretation: Hypertensive - General General appearance: Alert In distress: None - HEENT Head: Normocephalic Eyes: Normal Conjunctiva: Normal Cornea: Normal Extraocular movements intact: Yes Eyelashes: Normal Pupils: PERRL Nasal: Normal Mouth/Lips: Normal Mucous membranes: Normal Pharynx: Normal Neck: Normal - Respiratory Respiratory status: No respiratory distress Chest status: Nontender Breath sounds: Normal Chest palpation: Normal - Cardiovascular Rhythm: Regular Heart sounds: Normal auscultation Murmur: No Friction rub: No Sam's crunch: No - Abdominal Inspection: Normal Distension: No distension Bowel sounds: Normal Tenderness: Nontender Organomegaly: No organomegaly - Genitourinary External exam: Normal - Back Back: Normal - Extremities General upper extremity: Normal inspection General lower extremity: Edema - Pitting edema to bilateral legs from knees to feet - Neurological Neuro grossly intact: Yes Cognition: Normal Orientation: AAOx4 Aris Coma Scale Eye Opening: Spontaneous Aris Coma Scale Verbal: Oriented Speech: Normal Cranial nerves: Normal Cerebellar coordination: Normal - Psychological Associated symptoms: Normal affect - She has chronic abdominal pain - Skin Skin Temperature: Warm Skin Moisture: Dry - . Course - Vital Signs Vital signs: Temp Pulse Resp BP Pulse Ox 98.4 F 66 20 178/66 H 100 05/17/19 12:50 05/17/19 12:50 05/17/19 16:22 05/17/19 16:22 05/17/19 16:22 - Laboratory Result Diagrams: 05/17/19 13:31 05/17/19 13:31 Laboratory results interpreted by me: 05/17/19 05/17/19 05/17/19 13:31 13:31 13:31 Hgb 11.6 L Hct 33.9 L D-Dimer 0.84 H Sodium 127.6 L Chloride 90 L BUN 25 H Est GFR (MDRD) Non-Af 55 L - Diagnostic Test Radiology reviewed: Reports reviewed - EKG Interpretation by Me EKG shows normal: Sinus rhythm Critical Care Note - Critical Care Note Total time excluding time spent on procedures (mins): 90 Comments: I discussed these findings with patient and daughter Emma;pt taking Losartan HCTZ Discharge - Discharge Clinical Impression: Hypertension, Hyponatremia Condition: Good Disposition: HOME, SELF-CARE Referrals: CHARITY ANDRES MD [Primary Care Provider] - Follow up as needed
--- NOTE | 2019-05-17 16:34 | RADIOLOGY REPORT (SQ) ---
EXAM DESCRIPTION: CT HEAD WITHOUT COMPLETED DATE/TIME: 05/17/2019 4:20 pm REASON FOR STUDY: visual hallucination COMPARISON: 05/15/2019. TECHNIQUE: Axial images acquired through the brain without intravenous contrast. Images reviewed wi th bone, brain and subdural windows. Additional sagittal and coronal reconstructions were generated. Images stored on PACS. All CT scanners at this facility use dose modulation, iterative reconstruction, and/or weight based d osing when appropriate to reduce radiation dose to as low as reasonably achievable (ALARA). [facility]: Dose Right [facility]: CareDose [facility]: Dose Right [facility]: Teradose 4D [facility]: Smart BAUNAT RADIATION DOSE: CT Rad equipment meets quality standard of care and radiation dose reduction techniq ues were employed. CTDIvol: 53.2 mGy. DLP: 964 mGy-cm. mGy. LIMITATIONS: None. FINDINGS: VENTRICLES: Prominent. CEREBRUM: No masses. No hemorrhage. No midline shift. Areas of low density in the white matter mos t likely due to chronic micro-vascular ischemic change. No evidence for acute infarction. CEREBELLUM: No masses. No hemorrhage. No alteration of density. No evidence for acute infarction. EXTRAAXIAL SPACES: Mild age-related involutional change. No fluid collections. No masses. ORBITS AND GLOBE: No intra- or extraconal masses. Normal contour of globe without masses. CALVARIUM: No fracture. PARANASAL SINUSES: No fluid or mucosal thickening. SOFT TISSUES: No mass or hematoma. OTHER: No other significant finding. IMPRESSION: MILD CHRONIC CHANGES OF ATROPHY AND MICROVASCULAR ISCHEMIA. NO ACUTE PROCESS. EVIDENCE OF ACUTE STROKE: NO. TECHNICAL DOCUMENTATION: JOB ID: [id number] Quality ID # [id number]: Final reports with documentation of one or more dose reduction techniques (e.g., Au tomated exposure control, adjustment of the mA and/or kV according to patient size, use of iterative reconstruction technique) 2010 [employer]- All Rights Reserved Reading location - IP/workstation name: [email or web address]
[2019-05-17] MEDS ORDERED: NORMAL SALINE 500 ML IV ONE (16:56)
[2019-05-17 20:18] VITALS: BP 148/73
--- NOTE | 2019-05-17 23:30 | EKG REPORT ---
SEVERITY:- ABNORMAL ECG - SINUS RHYTHM PROBABLE LEFT ATRIAL ABNORMALITY RIGHT BUNDLE BRANCH BLOCK : Confirmed by: Andrzej Palma 17-May-2019 23:29:42
== END 2019-05-17 20:27 | disposition home or self-care (01) ==
LOC: ER 12:35
DX: I10 Essential (primary) hypertension (principal); E87.1 Hypo-osmolality and hyponatremia; R07.9 Chest pain, unspecified; E11.9 Type 2 diabetes mellitus without complications; Z79.899 Other long term (current) drug therapy
CPT/HCPCS: 93005; 99285; 96361; 96374; 36415; 83735; 84443; 85025; 80053; 84484; 85379; 83880; 71045; 70450; 93010; J3490; J7040

== ENCOUNTER 2019-06-16 09:51 | Emergency (ER) | payer MEDICARE, MEDICAID ==
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
--- NOTE | 2019-06-16 11:53 | RADIOLOGY REPORT (SQ) ---
EXAM DESCRIPTION: CT CERVICAL SPINE WITHOUT COMPLETED DATE/TIME: 06/16/2019 11:38 am REASON FOR STUDY: 16; fall COMPARISON: None. TECHNIQUE: Axial images acquired through the cervical spine without intravenous contrast. Images re viewed with lung, soft tissue and bone windows. Reconstructed coronal and sagittal MPR images review ed. Images stored on PACS. All CT scanners at this facility use dose modulation, iterative reconstruction, and/or weight based d osing when appropriate to reduce radiation dose to as low as reasonably achievable (ALARA). [facility]: Dose Right [facility]: CareDose [facility]: Dose Right [facility]: Teradose 4D [facility]: [employer] RADIATION DOSE: CT Rad equipment meets quality standard of care and radiation dose reduction techniq ues were employed. CTDIvol: 11.4 mGy. DLP: 187 mGy-cm. mGy. LIMITATIONS: None. FINDINGS: ALIGNMENT: Reversal the normal lordotic curve. MINERALIZATION: Osteopenia VERTEBRAL BODIES: No fractures or dislocation. DISCS: Multilevel disc space narrowing with osteophytes. FACETS, LATERAL MASSES, POSTERIOR ELEMENTS: Facet arthropathy. No fractures. No dislocation. No ac sammi findings. HARDWARE: None in the spine. VISUALIZED RIBS: No fractures. LUNG APICES AND SOFT TISSUES: Extensive vascular calcification. OTHER: No other significant finding. IMPRESSION: CHRONIC DEGENERATIVE CHANGES. NO ACUTE FINDINGS. TECHNICAL DOCUMENTATION: JOB ID: [id number] Quality ID # [id number]: Final reports with documentation of one or more dose reduction techniques (e.g., Au tomated exposure control, adjustment of the mA and/or kV according to patient size, use of iterative reconstruction technique) 2010 [employer]- All Rights Reserved Reading location - IP/workstation name: [email or web address]
--- NOTE | 2019-06-16 11:57 | RADIOLOGY REPORT (SQ) ---
EXAM DESCRIPTION: CT HEAD WITHOUT COMPLETED DATE/TIME: 06/16/2019 11:38 am REASON FOR STUDY: 16; fall COMPARISON: 05/17/2019 TECHNIQUE: Axial images acquired through the brain without intravenous contrast. Images reviewed wi th bone, brain and subdural windows. Additional sagittal and coronal reconstructions were generated. Images stored on PACS. All CT scanners at this facility use dose modulation, iterative reconstruction, and/or weight based d osing when appropriate to reduce radiation dose to as low as reasonably achievable (ALARA). [facility]: Dose Right [facility]: CareDose [facility]: Dose Right [facility]: Teradose 4D [facility]: [employer] [facility] RADIATION DOSE: CT Rad equipment meets quality standard of care and radiation dose reduction techniq ues were employed. CTDIvol: 53.2 mGy. DLP: 991 mGy-cm.mGy. LIMITATIONS: None. FINDINGS: VENTRICLES: Prominent. CEREBRUM: No masses. No hemorrhage. No midline shift. Areas of low density in the white matter mos t likely due to chronic micro-vascular ischemic change. No evidence for acute infarction. CEREBELLUM: No masses. No hemorrhage. No alteration of density. No evidence for acute infarction. EXTRAAXIAL SPACES: Age-related involutional change. No fluid collections. No masses. ORBITS AND GLOBE: No intra- or extraconal masses. Normal contour of globe without masses. CALVARIUM: No fracture. PARANASAL SINUSES: No fluid or mucosal thickening. SOFT TISSUES: Large occipital scalp hematoma on the right. OTHER: No other significant finding. IMPRESSION: CHRONIC CHANGES OF ATROPHY AND MICROVASCULAR ISCHEMIA. NO ACUTE PROCESS. EVIDENCE OF ACUTE STROKE: NO. TECHNICAL DOCUMENTATION: JOB ID: [id number] Quality ID # [id number]: Final reports with documentation of one or more dose reduction techniques (e.g., Au tomated exposure control, adjustment of the mA and/or kV according to patient size, use of iterative reconstruction technique) 2010 [employer]- All Rights Reserved Reading location - IP/workstation name: [email or web address]
--- NOTE | 2019-06-16 11:59 | RADIOLOGY REPORT (SQ) ---
EXAM DESCRIPTION: HIP RIGHT AP/LATERAL COMPLETED DATE/TIME: 06/16/2019 11:44 am REASON FOR STUDY: fall COMPARISON: None. NUMBER OF VIEWS: Two views. TECHNIQUE: AP pelvis and additional frog-leg view of the right hip. LIMITATIONS: None. FINDINGS: MINERALIZATION: Osteopenia. RIGHT HIP: No fracture or dislocation. No worrisome bone lesions. LEFT HIP: No fracture or dislocation. No worrisome bone lesions. PUBIS AND ISCHIUM: No fracture. PELVIS: No fracture. SACRUM: No fracture or dislocation. No worrisome bone lesions. LOWER LUMBAR SPINE: No fracture or dislocation. No worrisome bone lesions. No significant disc disea se. SOFT TISSUES: No findings. OTHER: No other significant finding. IMPRESSION: NEGATIVE STUDY OF THE RIGHT HIP. NO RADIOGRAPHIC EVIDENCE OF ACUTE INJURY. TECHNICAL DOCUMENTATION: JOB ID: [id number] 2010 [employer]- All Rights Reserved Reading location - IP/workstation name: [email or web address]
--- NOTE | 2019-06-16 13:08 | EKG REPORT ---
SEVERITY:- ABNORMAL ECG - SINUS RHYTHM PROBABLE LEFT ATRIAL ABNORMALITY RIGHT BUNDLE BRANCH BLOCK PROBABLE INFERIOR INFARCT, AGE INDETERMINATE : Confirmed by: Elton Schilling MD 16-Jun-2019 13:08:32
[2019-06-16 13:20] VITALS: BP 127/68
== END 2019-06-16 13:21 | disposition home or self-care (01) ==
LOC: ER 09:51
DX: S09.90XA Unspecified injury of head, initial encounter (principal); W10.9XXA Fall (on) (from) unspecified stairs and steps, initial encounter; G89.29 Other chronic pain; M25.551 Pain in right hip; I10 Essential (primary) hypertension; E11.9 Type 2 diabetes mellitus without complications
CPT/HCPCS: 70450; 72125; 93005; 93010; 99284

== ENCOUNTER 2019-06-16 14:46 | Observation (INO) | payer MEDICARE, MEDICAID ==
--- NOTE | 2019-06-16 16:00 | ER Document Report ---
ED Medical Screen (RME) - General Chief Complaint: Syncope Stated Complaint: SYNCOPAL EPISODE Time Seen by Provider: 06/16/19 15:51 Primary Care Provider: CHARITY ANDRES MD [Primary Care Provider] - Follow up as needed Notes: Patient is a 84-year-old female with a history of type 2 diabetes and hypertension who presents emergency department with a chief complaint of syncope. Patient was seen here earlier in our emergency department after a fall. She was discharged on the way home the family member reports that the patient stated that she felt very hot. She reports that the patient at that time did pass out for an estimated 20 minutes. Patient denies chest pain or shortness of breath. States she did not feel dizzy. States that she just felt funny. Patient reports she is starting to feel little bit better. Blood sugar in triage was 152. TRAVEL OUTSIDE OF THE [place] IN LAST 30 DAYS: No - Related Data Allergies/Adverse Reactions: No Known Allergies Allergy (Verified 06/16/19 15:53) Past Medical History - Social History Frequency of alcohol use: None Drug Abuse: None - Past Medical History Cardiac Medical History: Reports: Hx Hypertension Endocrine Medical History: Reports: Hx Diabetes Mellitus Type 2 Musculoskeltal Medical History: Reports Hx Arthritis - Immunizations Hx Diphtheria, Pertussis, Tetanus Vaccination: No Physical Exam - Cardiovascular Rhythm: Regular Heart sounds: S1 appreciated, S2 appreciated Course - Re-evaluation Re-evalutation: 06/16/19 15:59 I have greeted and performed a rapid initial assessment of this patient. A comp rehensive ED assessment and evaluation of the patient, analysis of test results and completion of the medical decision making process will be conducted by additional ED providers. Doctor's Discharge - Discharge Referrals: CHARITY ANDRES MD [Primary Care Provider] - Follow up as needed
--- NOTE | 2019-06-16 17:03 | RADIOLOGY REPORT (SQ) ---
EXAM DESCRIPTION: CT HEAD WITHOUT COMPLETED DATE/TIME: 06/16/2019 4:50 pm REASON FOR STUDY: 13; fall COMPARISON: CT of the head without contrast from 06/16/2019. TECHNIQUE: Axial images acquired through the brain without intravenous contrast. Images reviewed wi th bone, brain and subdural windows. Additional sagittal and coronal reconstructions were generated. Images stored on PACS. All CT scanners at this facility use dose modulation, iterative reconstruction, and/or weight based d osing when appropriate to reduce radiation dose to as low as reasonably achievable (ALARA). [facility]: Dose Right [facility]: CareDose [facility]: Dose Right [facility]: Teradose 4D [facility]: [employer] RADIATION DOSE: CT Rad equipment meets quality standard of care and radiation dose reduction techniq ues were employed. CTDIvol: 53.2 mGy. DLP: 991 mGy-cm. LIMITATIONS: None. FINDINGS: There is diffuse age-appropriate cerebral and cerebellar volume loss. The caliber the skip tricles is concordant with the degree of sulcation and unchanged from the prior CT. The confluent ar eas of hypoattenuation within the supratentorial periventricular and subcortical white matter are als o unchanged and could represent the sequela of chronic microvascular ischemia. There is no acute intracranial hemorrhage, vascular territorial infarct, extra-axial fluid collection , mass effect or midline shift. The chávez-white matter differentiation is preserved. There is no eff acement of the cerebral sulci or basal subarachnoid cisterns. There is re- demonstration of a right occipital scalp hematoma; there is no associated calvarial frac ture. The globes are aphakic. The orbits are intact. There is no opacification of the paranasal si nuses. IMPRESSION: 1. No acute intracranial abnormality. 2. Right occipital scalp hematoma. EVIDENCE OF ACUTE STROKE: NO. COMMENT: Quality ID # 436: Final reports with documentation of one or more dose reduction techniques (e.g., Automated exposure control, adjustment of the mA and/or kV according to patient size, use of iterative reconstruction technique) TECHNICAL DOCUMENTATION: JOB ID: [id number] 2010 [employer]- All Rights Reserved Reading location - IP/workstation name: [email or web address]
--- NOTE | 2019-06-16 17:05 | ER Document Report ---
ED Syncope and Near Syncope - General Chief Complaint: Syncope Stated Complaint: SYNCOPAL EPISODE Time Seen by Provider: 06/16/19 15:51 Primary Care Provider: CHARITY ANDRES MD [Primary Care Provider] - Follow up as needed Information source: Patient Notes: HPI: 84-year-old female who was just seen earlier today here after sliding down 3 steps hitting the back of her head. At that time she had denied any lightheadedness, dizziness, chest pain, palpitations, or episodes of syncope. Family states when they were driving home that the patient had a witnessed episode where she became "unresponsive". It was transient. Patient states she felt "hot all over". Patient still denies any chest pain, palpitations, lightheadedness, or dizziness. She denies any weakness or numbness. No nausea or vomiting. ROS: See HPI All other review of systems reviewed and otherwise negative Reviewed vital signs and nursing note as charted by RN. PHYSICAL EXAM: CONSTITUTIONAL: Alert and oriented and responds appropriately to questions. Well-appearing; well-nourished HEAD: Normocephalic; atraumatic EYES: PERRL; full extraocular range of motion ENT: Normal nose; no rhinorrhea; moist mucous membranes; pharynx without lesions noted NECK: Supple without meningismus; non-tender; no carotid bruit; no cervical lymphadenopathy, no masses CARD: Regular rate and rhythm; no murmurs; symmetric distal pulses RESP: Normal chest excursion without splinting or tachypnea; breath sounds clear and equal bilaterally; no wheezes, no rhonchi, no rales ABD/GI: Normal bowel sounds; non-distended; soft, non-tender; no abdominal bruits or palpable masses BACK: The back appears normal and is non-tender to palpation EXT: Normal ROM in all joints; non-tender to palpation; no edema SKIN: No acute lesions noted NEURO: CN 2-12 intact; 5/5 bilateral upper and lower extremity strength with sensation intact to light touch PSYCH: The patient's mood and manner are appropriate. Grooming and personal h ygiene are appropriate. TRAVEL OUTSIDE OF THE [place] IN LAST 30 DAYS: No - Related Data Allergies/Adverse Reactions: No Known Allergies Allergy (Verified 06/16/19 15:53) Past Medical History - Social History Smoking Status: Never Smoker Frequency of alcohol use: None Drug Abuse: None Family History: Reviewed & Not Pertinent Patient has suicidal ideation: No Patient has homicidal ideation: No - Past Medical History Cardiac Medical History: Reports: Hx Hypertension Endocrine Medical History: Reports: Hx Diabetes Mellitus Type 2 Musculoskeletal Medical History: Reports Hx Arthritis - Immunizations Hx Diphtheria, Pertussis, Tetanus Vaccination: No Physical Exam - Vital signs Vitals: Resp Pulse Ox 18 100 06/16/19 16:33 06/16/19 16:33 Course - Re-evaluation Re-evalutation: Given the above history and physical, I did repeat the patient's EKG showing a heart rate of 60, normal sinus rhythm, right bundle branch block, with no appreciable change from earlier today. I did repeat the patient's CT scan of the head to make sure that there was no delayed bleed causing the syncopal episode. Patient will be admitted for further evaluation for the 2 repeat episodes today. - Vital Signs Vital signs: Temp Pulse Resp BP Pulse Ox 19 141/69 H 100 06/16/19 16:34 06/16/19 16:34 06/16/19 16:34 Discharge - Discharge Clinical Impression: Syncope and collapse Condition: Fair Disposition: ADMITTED OBSERVATION Admitting Provider: Anne (Hospitalist) Unit Admitted: Telemetry Referrals: CHARITY ANDRES MD [Primary Care Provider] - Follow up as needed
--- NOTE | 2019-06-16 17:48 | EKG REPORT ---
SEVERITY:- ABNORMAL ECG - SINUS RHYTHM PROBABLE LEFT ATRIAL ABNORMALITY RIGHT BUNDLE BRANCH BLOCK PROBABLE INFERIOR INFARCT, AGE INDETERMINATE : Confirmed by: Elton Schilling MD 16-Jun-2019 17:48:18
[2019-06-16 17:52] LABS: APPEARANCE,URINE SLIGHTLY-CLOUDY; BILIRUBIN,URINE NEGATIVE (NEGATIVE); COLOR,URINE YELLOW; GLUCOSE, URINE NEGATIVE (NEGATIVE); KETONES,URINE NEGATIVE (NEGATIVE); LEUKOCYTE ESTERASE,URINE NEGATIVE (NEGATIVE); NITRITE,URINE NEGATIVE (NEGATIVE); PROTEIN,URINE NEGATIVE (NEGATIVE); URINE SPECIFIC GRAVITY 1.008; UROBILINOGEN,URINE NEGATIVE mg/dL (<2.0)
[2019-06-16 17:54] LABS: ABSOLUTE LYMPHOCYTES (AUTO) 1.5 10^3/uL (0.5-4.7); ABSOLUTE MONOCYTES (AUTO) 0.7 10^3/uL (0.1-1.4); ABSOLUTE NEUT (AUTO) 7.7 10^3/uL (1.7-8.2); BASOPHILS % (AUTO) 0.1 % (0-2); EOSINOPHILS % (AUTO) 0.4 % (0-6); HEMATOCRIT 33.6 % (36.0-47.0); HEMOGLOBIN 11.2 g/dL (12.0-15.5); LYMPHOCYTES % (AUTO) 15.4 % (13-45); MEAN CORPUSCULAR HEMOGLOBIN 30.1 pg (27.0-33.4); MEAN CORPUSCULAR HGB CONC 33.5 g/dL (32.0-36.0); MEAN CORPUSCULAR VOLUME 90 fl (80-97); MONOCYTES % (AUTO) 7.4 % (3-13); PLATELET COUNT 344 10^3/uL (150-450); RED BLOOD COUNT 3.73 10^6/uL (3.72-5.28); RED CELL DISTRIBUTION WIDTH 13.9 % (11.5-14.0); SEGMENTED NEUTROPHILS % (AUTO) 76.7 % (42-78); TOTAL CELLS COUNTED % (AUTO) 100 %
[2019-06-16 18:18] LABS: ALBUMIN 4.2 g/dL (3.5-5.0); ALKALINE PHOSPHATASE 83 U/L (38-126); ANION GAP 15 (5-19); ASPARTATE AMINO TRANSFERASE 29 U/L (14-36); BILIRUBIN,DIRECT 0.3 mg/dL (0.0-0.4); BILIRUBIN,TOTAL 0.8 mg/dL (0.2-1.3); BLOOD UREA NITROGEN 27 mg/dL (7-20); CALCIUM 10.2 mg/dL (8.4-10.2); CARBON DIOXIDE 21 mmol/L (22-30); CHLORIDE 92 mmol/L (98-107); GLUCOSE 126 mg/dL (75-110); POTASSIUM 4.4 mmol/L (3.6-5.0); TOTAL PROTEIN 7.7 g/dL (6.3-8.2)
[2019-06-16] MEDS ORDERED: NORMAL SALINE 1000 ML 1,000 ML IV PRN ×2 (18:26→18:34)
[2019-06-16] MEDS ORDERED: NORMAL SALINE 1000 ML 500 ML IV ONE (18:26)
[2019-06-16] MEDS ORDERED: ACETAMINOPHEN 325 MG TABLET PO PRN (18:27)
[2019-06-16] MEDS ORDERED: MAG HYDROX/AL HYDROX/SIMETH SUSP 30 ML UDCUP PO PRN (18:27)
[2019-06-16] MEDS ORDERED: ONDANSETRON HCL INJ/PF 4 MG/2 ML SDV IV PRN (18:27)
[2019-06-16] MEDS ORDERED: ALBUTEROL SULFATE 0.083% NEB 2.5 MG/3 ML AMPUL NEB PRN (18:27)
[2019-06-16] MEDS ORDERED: HYDRALAZINE HCL INJ/PF 20 MG/1 ML SDV IV PRN (18:44)
[2019-06-16] MEDS ORDERED: GLUCAGON,HUMAN RECOMB 1 MG INJ IM PRN (18:46)
[2019-06-16] MEDS ORDERED: DEXTROSE 50%-WATER 25 GM/50 ML DISP.SYRIN IV PRN ×2 (18:46)
[2019-06-16] MEDS ORDERED: DEXTROSE 40% GEL 15 GM TUBE PO PRN ×2 (18:46)
--- NOTE | 2019-06-16 18:50 | PDOC H&P ---
History of Present Illness Admission Date/PCP: 06/16/19 17:16 CHARITY ANDRES Patient complains of: syncope History of Present Illness: ELICEO LATIF is a 84 year old female with a past medical history of hypertension, DM 2, dementia, and arthritis. The patient has had multiple medication changes for her hypertension over the last month due to side effects. Today she was at her primary care provider's office leaving to go home when she fell down the steps; it is unclear whether or not she had a near syncopal/syncopal episode prompting her fall. At this time she believes her knee gave out. However, the patient does have dementia and her family members admits she often has difficulty expressing herself which limits the accuracy of this report. She was evaluated the emergency department at that time with normal vital signs, normal laboratory evaluation, and unremarkable CT imaging of her head, pelvis, and C-spine. She was discharged from the ER back to home and while on the way home, she had an unresponsive episode in the back of the car. Patient's family members report that she began complaining of feeling hot and then became slightly panicky and then "slumped over." Family members report that she attempted to raise her head a few times but continued to be minimally responsive for 15 to 20 minutes. They deny seizure-like activity, vomiting, incontinence. This prompted them to return to the emergency department by POV. Repeat head CT in the emergency department was negative for acute intracranial findings; did demonstrate a right occipital scalp hematoma. EKG showed sinus rhythm with a right bundle branch block (chronic), vital signs showed a heart rate in the 60s, slightly elevated but acceptable blood pressures given age,, and unremarkable laboratory evaluation other than mild hyponatremia (NA 127.9). While orthostatic blood pressures were not positive, her heart rate was noted to increase 20 bpm between supine and standing. She is referred to the hospitalist service for admission and management of the above-stated complaints and findings. Past Medical History Cardiac Medical History: Reports: Hypertension Pulmonary Medical History: Reports: None EENT Medical History: Reports: None Neurological Medical History: Reports: None Endocrine Medical History: Reports: Diabetes Mellitus Type 2 Renal/ Medical History: Reports: None Malignancy Medical History: Reports: None GI Medical History: Reports: None Musculoskeltal Medical History: Reports: Arthritis Psychiatric Medical History: Reports: Dementia Traumatic Medical History: Reports: None Hematology: Reports: None Infectious Medical History: Reports: None Social History Information Source: Relative, Emergency Med Personnel, [facility] Records Lives with: Family Smoking Status: Never Smoker Electronic Cigarette use?: No Frequency of Alcohol Use: None Hx Recreational Drug Use: No Hx Prescription Drug Abuse: No - Advance Directive Resuscitation Status: Full Code Family History Family History: Reviewed & Not Pertinent Parental Family History Reviewed: Yes Children Family History Reviewed: Yes Sibling(s) Family History Reviewed.: Yes Medication/Allergy Home Medications: Aspirin [Aspirin 81 mg Chewable Tablet] 81 mg PO DAILY 11/21/13 Young/D3/Mag11/Zinc/Side Splitter/Micky/Bor [Caltrate 600+D Plus Tablet] 1 tab PO DAILY 11/21/13 Loratadine 10 mg PO DAILY 11/21/13 No.137/Iron/Folic Acd [ Tablet] 1 tab PO DAILY 11/21/13 Acetaminophen [Tylenol 325 mg Tablet] 650 mg PO Q4HP PRN 05/15/19 Losartan/Hydrochlorothiazide [Losartan-Hctz 100-25 mg Tab] 1 each PO DAILY 05/15/19 Metoprolol Tartrate [Lopressor] 100 mg PO Q12 05/15/19 Raloxifene HCl 60 mg PO DAILY 05/15/19 Diltiazem HCl [Cardizem Cd 120 mg Capsule] 1 cap.sr PO DAILY #10 cap.sr 05/17/19 Glipizide [Glucotrol 5 mg Tablet] 5 mg PO DAILY 05/17/19 Magnesium Chloride [Slow-Mag] 64 mg PO DAILY #1 bottle 05/17/19 Allergies/Adverse Reactions: No Known Allergies Allergy (Verified 06/16/19 15:53) Review of Systems Constitutional: ABSENT: chills, fever(s), headache(s), weight gain, weight loss Eyes: ABSENT: visual disturbances Ears: ABSENT: hearing changes Cardiovascular: ABSENT: chest pain, dyspnea on exertion, edema, orthropnea, palpitations Respiratory: ABSENT: cough, hemoptysis Gastrointestinal: ABSENT: abdominal pain, constipation, diarrhea, hematemesis, hematochezia, nausea, vomiting Genitourinary: ABSENT: dysuria, hematuria Musculoskeletal: ABSENT: joint swelling Integumentary: ABSENT: rash, wounds Neurological: PRESENT: as per HPI, syncope. ABSENT: abnormal gait, abnormal speech, confusion, dizziness, focal weakness Psychiatric: ABSENT: anxiety, depression, homidical ideation, suicidal ideation Endocrine: ABSENT: cold intolerance, heat intolerance, polydipsia, polyuria Hematologic/Lymphatic: ABSENT: easy bleeding, easy bruising Physical Exam Vital Signs: Temp Pulse Resp BP Pulse Ox 63 15 139/63 H 100 06/16/19 18:20 06/16/19 17:15 06/16/19 18:20 06/16/19 17:15 Intake & Output 06/15/19 06/16/19 06/17/19 06:59 06:59 06:59 Weight 61 kg General appearance: PRESENT: no acute distress, hard of hearing, thin, well- developed, well-nourished, other - Frail Head exam: PRESENT: normocephalic, other - Occipital scalp hematoma; tender to palpation Eye exam: PRESENT: conjunctiva pink, EOMI, PERRLA, other - Bilateral cataracts. ABSENT: scleral icterus Ear exam: PRESENT: normal external ear exam Mouth exam: PRESENT: moist, tongue midline Teeth exam: PRESENT: edentulous Neck exam: ABSENT: carotid bruit, JVD, lymphadenopathy, thyromegaly Respiratory exam: PRESENT: clear to auscultation diana, symmetrical, unlabored. ABSENT: rales, rhonchi, wheezes Cardiovascular exam: PRESENT: bradycardia, RRR, +S1, +S2. ABSENT: diastolic murmur, rubs, systolic murmur Pulses: PRESENT: +1 pedal pulses bilateral Vascular exam: PRESENT: normal capillary refill GI/Abdominal exam: PRESENT: normal bowel sounds, soft. ABSENT: distended, guarding, mass, organolmegaly, rebound, tenderness Rectal exam: PRESENT: deferred Extremities exam: PRESENT: full ROM. ABSENT: calf tenderness, clubbing, pedal edema Neurological exam: PRESENT: alert, awake, oriented to person, oriented to place, oriented to situation, CN II-XII grossly intact, other - Forgetful; intermittent confusion at baseline. ABSENT: motor sensory deficit Psychiatric exam: PRESENT: appropriate affect, normal mood. ABSENT: homicidal ideation, suicidal ideation Skin exam: PRESENT: dry, intact, warm. ABSENT: cyanosis, rash Results Laboratory Results: 06/16/19 17:00 06/16/19 17:00 06/16/19 06/16/19 06/16/19 17:00 17:00 17:00 WBC 10.0 RBC 3.73 Hgb 11.2 L Hct 33.6 L MCV 90 MCH 30.1 MCHC 33.5 RDW 13.9 Plt Count 344 Seg Neutrophils % 76.7 Sodium 127.9 L Potassium 4.4 Chloride 92 L Carbon Dioxide 21 L Anion Gap 15 BUN 27 H Creatinine 0.92 Est GFR ( Amer) > 60 Glucose 126 H Calcium 10.2 Total Bilirubin 0.8 AST 29 Alkaline Phosphatase 83 Total Protein 7.7 Albumin 4.2 Urine Color YELLOW Urine Appearance SLIGHTLY-CLOUDY Urine pH 5.0 Ur Specific [place] 1.008 Urine Protein NEGATIVE Urine Glucose (UA) NEGATIVE Urine Ketones NEGATIVE Urine Blood NEGATIVE Urine Nitrite NEGATIVE Ur Leukocyte Esterase NEGATIVE Urine WBC (Auto) 2 Urine RBC (Auto) 1 06/16/19 17:00 Troponin I < 0.012 Impressions: Head CT 06/16/19 16:37 IMPRESSION: 1. No acute intracranial abnormality. 2. Right occipital scalp hematoma. EVIDENCE OF ACUTE STROKE: NO. Assessment and Plan - Diagnosis (1) Syncope and collapse Is this a current diagnosis for this admission?: Yes Plan: Unclear etiology patient did have a fall while walking downstairs is; unable to clarify whether or not she had near syncopal symptoms prior to fall due to baseline mentation. She had a second episode while sitting in the back of a car. Serial head CTs are negative for acute findings. EKG shows chronic RBBB Laboratory evaluation is unremarkable. Orthostatic blood pressures are negative, however, heart rate did increase 20 beats from supine to standing. She has had multiple blood pressure medication changes over the last month due to uncontrolled hypertension and side effects. Echocardiogram pending. Head MRI pending. Hemoglobin A1c, TSH, a.m. cortisol pending. Patient is admitted to the medical floor on continuous cardiac telemetry. She is provided a 500 NS bolus followed by maintenance IV fluids. Holding antihypertensive medications as the patient is borderline bradycardic at rest (60-63 on telemetry during my assessment). We will monitor Accu-Cheks to trend for hypoglycemia. RY hose for all out of bed activity. Out of bed with assistance. Fall precautions. Physical therapy is consulted. Discharge planning is consulted. (2) Hypertension Is this a current diagnosis for this admission?: Yes Plan: Holding beta-ratna secondary to bradycardia and syncopal episode. Cardiac diet. IV hydralazine as needed for blood pressure control. We will resume home medication regiment once reconciled as appropriate. (3) Diabetes Qualifiers: Diabetes mellitus type: type 2 Diabetes mellitus penitentiary insulin use: without penitentiary use Is this a current diagnosis for this admission?: Yes Plan: Holding oral medications while admitted. We will check A1c with a.m. lab work. Patient is prescribed glipizide; likely not best choice given the patient's age and frail status. Would recommend discontinuing at discharge. Patient is placed on a consistent carb diet. Accu-Cheks before meals and at bedtime with Humalog for sliding scale coverage. Hypoglycemia protocol in place. Registered dietitian prosthodontist/educator consulted. (4) Dementia Is this a current diagnosis for this admission?: Yes Plan: Supportive care. Fall precautions. Avoid sedating medications. (5) Accidental fall Qualifiers: Encounter type: initial encounter Qualified Code(s): W19.XXXA - Unspecified fall, initial encounter Is this a current diagnosis for this admission?: Yes Plan: Secondary to #1. Fall precautions. (6) Closed head injury Qualifiers: Encounter type: initial encounter Qualified Code(s): S09.90XA - Unspecified injury of head, initial encounter Is this a current diagnosis for this admission?: Yes Plan: Secondary to #1. Serial head CTs are negative for acute intracranial finding; do show occipital hematoma. Evaluation and management as above. - Time Time Spent with patient: 35 or more minutes Medications reviewed and adjusted accordingly: Yes Anticipated discharge: Home Within: within 24 hours
[2019-06-16] MEDS ORDERED: FAMOTIDINE 20 MG TABLET PO SCH (22:00)
[2019-06-16] MEDS: FAMOTIDINE 20 MG TABLET PO SCH (23:09)
[2019-06-16] MEDS: INSULIN LISPRO 100 UNIT/ML 3 ML VIAL SUBCUT SCH (23:10)
[2019-06-16] MEDS: HEPARIN SOD (PORCINE) 5,000 UNIT/ML 1 ML VIAL SUBCUT SCH (23:10)
--- NOTE | 2019-06-16 23:33 | RADIOLOGY REPORT (SQ) ---
CLINICAL HISTORY: LOC COMPARISON: June 16, 2019 CT. TECHNIQUE: MR BRAIN WITHOUT IV CONTRAST 06/16/2019 12:00 AM CLIENT SUPPORT ASSOCIATE FINDINGS: There are no areas of abnormal restricted diffusion. There is no hemorrhage, midline shift or mass effect. Visualized paranasal sinuses, mastoid air cells and orbits are grossly clear. There is a right parietal scalp contusion. IMPRESSION: No acute infarct.
[2019-06-17 05:54] LABS: HEMATOCRIT 28.4 % (36.0-47.0); HEMOGLOBIN 9.5 g/dL (12.0-15.5); MEAN CORPUSCULAR HEMOGLOBIN 29.9 pg (27.0-33.4); MEAN CORPUSCULAR HGB CONC 33.6 g/dL (32.0-36.0); MEAN CORPUSCULAR VOLUME 89 fl (80-97); PLATELET COUNT 301 10^3/uL (150-450); RED BLOOD COUNT 3.19 10^6/uL (3.72-5.28); RED CELL DISTRIBUTION WIDTH 13.5 % (11.5-14.0); WHITE BLOOD COUNT 7.2 10^3/uL (4.0-10.5)
[2019-06-17] MEDS: HEPARIN SOD (PORCINE) 5,000 UNIT/ML 1 ML VIAL SUBCUT SCH ×3 (05:54→21:45)
[2019-06-17 06:22] LABS: ANION GAP 10 (5-19); BLOOD UREA NITROGEN 22 mg/dL (7-20); CALCIUM 9.1 mg/dL (8.4-10.2); CARBON DIOXIDE 24 mmol/L (22-30); CHLORIDE 98 mmol/L (98-107); CHOLESTEROL 133.55 mg/dL (0-200); GLUCOSE 102 mg/dL (75-110); POTASSIUM 4.1 mmol/L (3.6-5.0); TRIGLYCERIDES 55 mg/dL (<150)
[2019-06-17 06:33] LABS: DIRECT LDL 52 mg/dL (<100)
--- NOTE | 2019-06-17 06:48 | EKG REPORT ---
SEVERITY:- DEFECTIVE ECG - SINUS RHYTHM PROBABLE LEFT ATRIAL ABNORMALITY RIGHT BUNDLE BRANCH BLOCK NONSPECIFIC ST-T CHANGES- INFERIOR LEADS : Confirmed by: Elton Schilling MD 17-Jun-2019 06:47:19
[2019-06-17] MEDS: INSULIN LISPRO 100 UNIT/ML 3 ML VIAL SUBCUT SCH ×4 (09:39→21:38)
[2019-06-17] MEDS: DOCUSATE SODIUM 100 MG CAPSULE PO SCH (09:41)
[2019-06-17] MEDS ORDERED: ACETAMINOPHEN 325 MG TABLET PO PRN (11:08)
--- NOTE | 2019-06-17 11:34 | PDOC PROGRESS REPORT ---
Subjective Progress Note for:: 06/17/19 Reason For Visit: SYNCOPE 06/17/2019 Patient was admitted with 2 separate episodes of syncope possibly related to bradycardia in secondary to medications. Physical Exam Vital Signs: Temp Pulse Resp BP Pulse Ox 97.5 F 69 20 140/55 H 98 06/17/19 07:57 06/17/19 07:57 06/17/19 07:57 06/17/19 07:57 06/17/19 07:57 Intake & Output 06/16/19 06/17/19 06/18/19 06:59 06:59 06:59 Intake Total 680 Output Total 800 Balance -120 Weight 56.2 kg General appearance: PRESENT: no acute distress Respiratory exam: PRESENT: clear to auscultation diana. ABSENT: rales, rhonchi, wheezes Cardiovascular exam: PRESENT: RRR. ABSENT: diastolic murmur, rubs, systolic murmur Neurological exam: PRESENT: alert, awake, oriented to person, oriented to place, oriented to time, oriented to situation, CN II-XII grossly intact. ABSENT: motor sensory deficit Psychiatric exam: PRESENT: appropriate affect, normal mood. ABSENT: homicidal ideation, suicidal ideation Results Laboratory Results: 06/17/19 05:22 06/17/19 05:22 06/16/19 06/16/19 06/16/19 17:00 17:00 17:00 WBC 10.0 RBC 3.73 Hgb 11.2 L Hct 33.6 L MCV 90 MCH 30.1 MCHC 33.5 RDW 13.9 Plt Count 344 Seg Neutrophils % 76.7 Sodium 127.9 L Potassium 4.4 Chloride 92 L Carbon Dioxide 21 L Anion Gap 15 BUN 27 H Creatinine 0.92 Est GFR ( Amer) > 60 Glucose 126 H Calcium 10.2 Total Bilirubin 0.8 AST 29 Alkaline Phosphatase 83 Total Protein 7.7 Albumin 4.2 Triglycerides Cholesterol LDL Cholesterol Direct VLDL Cholesterol HDL Cholesterol TSH Urine Color YELLOW Urine Appearance SLIGHTLY-CLOUDY Urine pH 5.0 Ur Specific [place] 1.008 Urine Protein NEGATIVE Urine Glucose (UA) NEGATIVE Urine Ketones NEGATIVE Urine Blood NEGATIVE Urine Nitrite NEGATIVE Ur Leukocyte Esterase NEGATIVE Urine WBC (Auto) 2 Urine RBC (Auto) 1 06/17/19 06/17/19 06/17/19 05:22 05:22 05:22 WBC 7.2 RBC 3.19 L Hgb 9.5 L Hct 28.4 L MCV 89 MCH 29.9 MCHC 33.6 RDW 13.5 Plt Count 301 Seg Neutrophils % Sodium 131.8 L Potassium 4.1 Chloride 98 Carbon Dioxide 24 Anion Gap 10 BUN 22 H Creatinine 0.86 Est GFR ( Amer) > 60 Glucose 102 Calcium 9.1 Total Bilirubin AST Alkaline Phosphatase Total Protein Albumin Triglycerides 55 Cholesterol 133.55 LDL Cholesterol Direct 52 VLDL Cholesterol 11.0 HDL Cholesterol 67 TSH 0.60 Urine Color Urine Appearance Urine pH Ur Specific [place] Urine Protein Urine Glucose (UA) Urine Ketones Urine Blood Urine Nitrite Ur Leukocyte Esterase Urine WBC (Auto) Urine RBC (Auto) 06/16/19 17:00 Troponin I < 0.012 Impressions: Head MRI 06/16/19 00:00 IMPRESSION: No acute infarct. Head CT 06/16/19 16:37 IMPRESSION: 1. No acute intracranial abnormality. 2. Right occipital scalp hematoma. EVIDENCE OF ACUTE STROKE: NO. Assessment and Plan - Diagnosis (1) Dementia Is this a current diagnosis for this admission?: Yes (2) Diabetes Qualifiers: Diabetes mellitus type: type 2 Diabetes mellitus half-way insulin use: without half-way use Is this a current diagnosis for this admission?: Yes (3) Hypertension Is this a current diagnosis for this admission?: Yes (4) Syncope and collapse Is this a current diagnosis for this admission?: Yes - Plan Summary Summary: 06/17/2019 Patient is sitting up in bed talking in no distress at all family members in the room as well. Patient had what sounds to be 2 near syncopal spells or to admission Recent labs show a normal MRI of the brain, A1c is 5.5, TSH is normal, cortisol level is normal. Patient was on Lopressor 100 mg every 12 hours Glucotrol 5 mg daily and lo sartan/HCTZ daily as well as Cardizem 240 mg ER I agree that it is a possibility that the patient's medications were causing her to bradycardia down and possibly syncopized. SHe is 84 years old and not a large person. I have resumed her home meds but at half the dosing the Lopressor is 50 every 12 now the Cardizem is 120 long-acting. Blood sugars are stable so I have resumed the Glucotrol, I have resumed her losartan HCTZ She does well today we will discharge her to home tomorrow with her sister who is in the room. He is asked about eating and drinking and I have ordered diabetic diet DC her IV fluids - Time Time Spent with patient: 25-34 minutes
[2019-06-17] MEDS ORDERED: GLIPIZIDE 5 MG TABLET PO SCH (16:30)
--- NOTE | 2019-06-17 21:35 | XCELERA REPORT ---
[address] [address] Transthoracic Echocardiogram Report Name: ELICEO LATIF Age: 84 yrs Gender: Female : 1935 Patient Status: Inpatient Patient Location: [address] [place] [address] Study Date: 06/17/2019 03:44 PM Height: 61 in Weight: 134 lb BSA: 1.6 m2 Procedure: A complete two-dimensional transthoracic echocardiogram was performed (2D, M-mode, spectral and color flow Doppler). The study was technically adequate with some images being suboptimal in quality. Reason For Study: syncope Ordering Physician: BILL LOPEZ Performed By: Hansa Viveros Interpretation Summary The left ventricular ejection fraction is within normal limits. There is mild concentric left ventricular hypertrophy. The left ventricle is grossly normal size. Doppler measurements suggest pseudonormalized left ventricular relaxation, which is associated with grade II/IV or mild to moderate diastolic dysfunction Wall motion cannot be accurately commented on, but no definite regional wall motion abnormalities noted. Borderline right ventricular enlargement. The right ventricle appears to be hypertrophied The right ventricular systolic function is normal. The left atrium is moderately dilated. The right atrium is mildly dilated. There is a trace to mild amount of mitral regurgitation There is no mitral valve stenosis. There is a trace amount of aortic regurgitation There is no aortic valve stenosis There is a mild amount of tricuspid regurgitation There is mild pulmonary hypertension by echo Best estimated RVSP is approximately 40 mm/Hg. The aortic root is not well visualized but is probably normal size. The inferior vena cava appeared normal There is no pericardial effusion. MMode/2D Measurements & Calculations RVDd: 3.1 cm LVIDd: 4.5 cm FS: 45.7 % Ao root diam: 2.5 cm IVSd: 0.95 cm LVIDs: 2.4 cm EDV(Teich): 91.4 ml Ao root area: 4.9 cm2 LVPWd: 0.90 cm ESV(Teich): 20.9 ml LA dimension: 3.0 cm EF(Teich): 77.2 % Doppler Measurements & Calculations MV E max antonio: MV P1/2t max antonio: Ao V2 max: LV V1 max P.9 cm/sec 86.9 cm/sec 148.4 cm/sec 6.7 mmHg MV A max antonio: MV P1/2t: 70.1 msec Ao max P.8 mmHgLV V1 max: 103.2 cm/sec MVA(P1/2t): 3.1 cm2 129.8 cm/sec MV E/A: 0.84 MV dec slope: 363.2 cm/sec2 MV dec time: 0.22 sec PA V2 max: TR max antonio: MV P1/2t-pr_phl: 105.1 cm/sec 284.9 cm/sec 70.1 msec PA max P.4 mmHgTR max P.5 mmHg Left Ventricle The left ventricle is grossly normal size. There is mild concentric left ventricular hypertrophy. The left ventricular ejection fraction is within normal limits. Doppler measurements suggest pseudonormalized left ventricular relaxation, which is associated with grade II/IV or mild to moderate diastolic dysfunction. Wall motion cannot be accurately commented on, but no definite regional wall motion abnormalities noted. Right Ventricle Borderline right ventricular enlargement. The right ventricle appears to be hypertrophied. The right ventricular systolic function is normal. Atria The right atrium is mildly dilated. The left atrium is moderately dilated. Interarterial septum not well visualized and not well dopplered. Cannot comment on ASD/PFO presence. Mitral Valve The mitral valve leaflets are sclerotic, but show no functional abnormalities. There is no mitral valve stenosis. There is a trace to mild amount of mitral regurgitation. Aortic Valve The aortic valve is grossly normal. There is no aortic valve stenosis. There is a trace amount of aortic regurgitation. Tricuspid Valve The tricuspid valve is not well visualized, but is grossly normal. There is no tricuspid stenosis. There is a mild amount of tricuspid regurgitation. There is mild pulmonary hypertension by echo. Best estimated RVSP is approximately 40 mm/Hg. Pulmonic Valve The pulmonic valve is not well visualized. Great Vessels The aortic root is not well visualized but is probably normal size. The inferior vena cava appeared normal. Effusions There is no pericardial effusion. : BILL LOPEZ Shyamal
[2019-06-17] MEDS: METOPROLOL TARTRATE 100 MG TABLET PO SCH (21:44)
[2019-06-17] MEDS: FAMOTIDINE 20 MG TABLET PO SCH (21:44)
[2019-06-18] MEDS: HEPARIN SOD (PORCINE) 5,000 UNIT/ML 1 ML VIAL SUBCUT SCH ×2 (06:17→13:17)
[2019-06-18] MEDS: INSULIN LISPRO 100 UNIT/ML 3 ML VIAL SUBCUT SCH ×2 (08:33→12:37)
[2019-06-18] MEDS: METOPROLOL TARTRATE 100 MG TABLET PO SCH (09:29)
[2019-06-18] MEDS: DOCUSATE SODIUM 100 MG CAPSULE PO SCH (09:29)
[2019-06-18] MEDS ORDERED: [UNRECOGNIZED DRUG - REMARK] PO SCH (10:00)
[2019-06-18] MEDS ORDERED: LOSARTAN POTASSIUM 50 MG TABLET PO SCH (10:00)
[2019-06-18] MEDS ORDERED: MAGNESIUM CHLORIDE 64 MG PO SCH (10:00)
[2019-06-18] MEDS ORDERED: DILTIAZEM HCL 120 MG CAP.SR.24H PO SCH (10:00)
[2019-06-18] MEDS ORDERED: PRENATAL VITAMIN W DHA CAPSULE PO SCH (10:00)
[2019-06-18] MEDS ORDERED: (PENDING PHARMACY ID) (Diltiazem Hcl [Diltiazem 24hr Er] 120 MG) PO SCH (10:00)
[2019-06-18] MEDS ORDERED: ASPIRIN 81 MG TABLET, CHEWABLE PO SCH (10:00)
[2019-06-18] MEDS ORDERED: (PENDING PHARMACY ID) (Losartan/Hydrochlorothiazide [Losartan-Hctz 100-25 Mg Tab] 1 EACH) PO SCH (10:00)
[2019-06-18] MEDS ORDERED: HYDROCHLOROTHIAZIDE 25 MG TABLET PO SCH (10:00)
[2019-06-18] MEDS ORDERED: RALOXIFENE HCL 60 MG TABLET PO SCH (10:00)
[2019-06-18 10:10] VITALS: BP 140/55
--- NOTE | 2019-06-18 15:43 | PDOC DISCHARGE SUMMARY ---
Impression - Admit/DC Date/PCP Admission Date/Primary Care Provider: 06/16/19 17:16 CHARITY ANDRES Discharge Date: 06/18/19 - Discharge Diagnosis (1) Dementia Is this a current diagnosis for this admission?: Yes (2) Diabetes Is this a current diagnosis for this admission?: Yes (3) Hypertension Is this a current diagnosis for this admission?: Yes (4) Syncope and collapse Is this a current diagnosis for this admission?: Yes - Assessment Summary: 06/17/2019 Patient is sitting up in bed talking in no distress at all family members in the room as well. Patient had what sounds to be 2 near syncopal spells or to admission Recent labs show a normal MRI of the brain, A1c is 5.5, TSH is normal, cortisol level is normal. Patient was on Lopressor 100 mg every 12 hours Glucotrol 5 mg daily and losartan/HCTZ daily as well as Cardizem 240 mg ER I agree that it is a possibility that the patient's medications were causing her to bradycardia down and possibly syncopized. SHe is 84 years old and not a large person. I have resumed her home meds but at half the dosing the Lopressor is 50 every 12 now the Cardizem is 120 long-acting. Blood sugars are stable so I have resumed the Glucotrol, I have resumed her losartan HCTZ She does well today we will discharge her to home tomorrow with her sister who is in the room. He is asked about eating and drinking and I have ordered diabetic diet DC her IV fluids 06/18/2019 Patient had no further episodes or spells or syncope. She is eating normally drinking normally, sitting up in bed sitting up in a chair Labs are all normal She was sent home on reduced dosing of her blood pressure medicines due to this being the potential culprit for her syncope - Additional Information Resuscitation Status: Full Code Discharge Activity: Activity As Tolerated Referrals: CHARITY ANDRES MD [Primary Care Provider] - 06/24/19 9:15 am Prescriptions: Diltiazem HCl [Cardizem Cd 120 mg Capsule] 120 mg PO DAILY 30 Days #30 cap.sr.24h Metoprolol Tartrate [Lopressor 100 mg Tablet] 50 mg PO Q12 30 Days #30 tablet Home Medications: Aspirin [Aspirin 81 mg Chewable Tablet] 81 mg PO DAILY 11/21/13 Young/D3/Mag11/Zinc/Motion Picture Cameraman/Micky/Bor [Caltrate 600+D Plus Tablet] 1 tab PO DAILY 11/21/13 Loratadine 10 mg PO DAILY 11/21/13 No.137/Iron/Folic Acd [ Vitamin Tablet] 1 tab PO DAILY 11/21/13 Acetaminophen [Tylenol 325 mg Tablet] 650 mg PO Q4HP PRN 05/15/19 Losartan/Hydrochlorothiazide [Losartan-Hctz 100-25 mg Tab] 1 each PO DAILY 05/15/19 Raloxifene HCl 60 mg PO DAILY 05/15/19 Glipizide [Glucotrol 5 mg Tablet] 5 mg PO DAILY@1630 05/17/19 Magnesium Chloride [Slow-Mag] 64 mg PO DAILY #1 bottle 05/17/19 Diltiazem HCl [Cardizem Cd 120 mg Capsule] 120 mg PO DAILY 30 Days #30 cap.sr.24h 06/18/19 Metoprolol Tartrate [Lopressor 100 mg Tablet] 50 mg PO Q12 30 Days #30 tablet 06/18/19 History of Present Illiness History of Present Illness: ELICEO LATIF is a 84 year old female Physical Exam Vital Signs: Temp Pulse Resp BP Pulse Ox 98.0 F 80 18 140/55 H 100 06/18/19 10:10 06/18/19 10:10 06/18/19 10:10 06/18/19 10:10 06/18/19 10:10 Intake & Output 06/17/19 06/18/19 06/19/19 06:59 06:59 06:59 Intake Total 680 1787 240 Output Total 800 1151 Balance -120 636 240 Weight 56.2 kg 60.2 kg Results Laboratory Results: WBC 7.2 10^3/uL (4.0-10.5) 06/17/19 05:22 RBC 3.19 10^6/uL (3.72-5.28) L 06/17/19 05:22 Hgb 9.5 g/dL (12.0-15.5) L 06/17/19 05:22 Hct 28.4 % (36.0-47.0) L 06/17/19 05:22 MCV 89 fl (80-97) 06/17/19 05:22 MCH 29.9 pg (27.0-33.4) 06/17/19 05:22 MCHC 33.6 g/dL (32.0-36.0) 06/17/19 05:22 RDW 13.5 % (11.5-14.0) 06/17/19 05:22 Plt Count 301 10^3/uL (150-450) 06/17/19 05:22 Lymph % (Auto) 15.4 % (13-45) 06/16/19 17:00 [place] % (Auto) 7.4 % (3-13) 06/16/19 17:00 Eos % (Auto) 0.4 % (0-6) 06/16/19 17:00 Baso % (Auto) 0.1 % (0-2) 06/16/19 17:00 Absolute Neuts (auto) 7.7 10^3/uL (1.7-8.2) 06/16/19 17:00 Absolute Lymphs (auto) 1.5 10^3/uL (0.5-4.7) 06/16/19 17:00 Absolute Monos (auto) 0.7 10^3/uL (0.1-1.4) 06/16/19 17:00 Absolute Eos (auto) 0.0 10^3/uL (0.0-0.6) 06/16/19 17:00 Absolute Basos (auto) 0.0 10^3/uL (0.0-0.2) 06/16/19 17:00 Seg Neutrophils % 76.7 % (42-78) 06/16/19 17:00 Sodium 131.8 mmol/L (137-145) L 06/17/19 05:22 Potassium 4.1 mmol/L (3.6-5.0) 06/17/19 05:22 Chloride 98 mmol/L (98-107) 06/17/19 05:22 Carbon Dioxide 24 mmol/L (22-30) 06/17/19 05:22 Anion Gap 10 (5-19) 06/17/19 05:22 BUN 22 mg/dL (7-20) H 06/17/19 05:22 Creatinine 0.86 mg/dL (0.52-1.25) 06/17/19 05:22 Est GFR ( Amer) > 60 (>60) 06/17/19 05:22 Est GFR (MDRD) Non-Af > 60 (>60) 06/17/19 05:22 Glucose 102 mg/dL (75-110) 06/17/19 05:22 POC Glucose 86 mg/dL (70-110) 06/18/19 07:51 Hemoglobin A1c % 5.5 % (4.7-6.0) 06/17/19 05:22 Calcium 9.1 mg/dL (8.4-10.2) 06/17/19 05:22 Total Bilirubin 0.8 mg/dL (0.2-1.3) 06/16/19 17:00 Direct Bilirubin 0.3 mg/dL (0.0-0.4) 06/16/19 17:00 Neonat Total Bilirubin Not Reportable 06/16/19 17:00 Neonat Direct Bilirubin Not Reportable 06/16/19 17:00 Neonat Indirect Bili Not Reportable 06/16/19 17:00 AST 29 U/L (14-36) 06/16/19 17:00 ALT 20 U/L (<35) 06/16/19 17:00 Alkaline Phosphatase 83 U/L (38-126) 06/16/19 17:00 Troponin I < 0.012 ng/mL 06/16/19 17:00 Total Protein 7.7 g/dL (6.3-8.2) 06/16/19 17:00 Albumin 4.2 g/dL (3.5-5.0) 06/16/19 17:00 Triglycerides 55 mg/dL (<150) 06/17/19 05:22 Cholesterol 133.55 mg/dL (0-200) 06/17/19 05:22 LDL Cholesterol Direct 52 mg/dL (<100) 06/17/19 05:22 VLDL Cholesterol 11.0 mg/dL (10-31) 06/17/19 05:22 HDL Cholesterol 67 mg/dL (>40) 06/17/19 05:22 TSH 0.60 uIU/mL (0.47-4.68) 06/17/19 05:22 Cortisol AM Sample 13.20 ug/dL (4.46-22.7) 06/17/19 05:22 Urine Color YELLOW 06/16/19 17:00 Urine Appearance SLIGHTLY-CLOUDY 06/16/19 17:00 Urine pH 5.0 (5.0-9.0) 06/16/19 17:00 Ur Specific [place] 1.008 06/16/19 17:00 Urine Protein NEGATIVE mg/dL (NEGATIVE) 06/16/19 17:00 Urine Glucose (UA) NEGATIVE mg/dL (NEGATIVE) 06/16/19 17:00 Urine Ketones NEGATIVE mg/dL (NEGATIVE) 06/16/19 17:00 Urine Blood NEGATIVE (NEGATIVE) 06/16/19 17:00 Urine Nitrite NEGATIVE (NEGATIVE) 06/16/19 17:00 Urine Bilirubin NEGATIVE (NEGATIVE) 06/16/19 17:00 Urine Urobilinogen NEGATIVE mg/dL (<2.0) 06/16/19 17:00 Ur Leukocyte Esterase NEGATIVE (NEGATIVE) 06/16/19 17:00 Urine WBC (Auto) 2 /HPF 06/16/19 17:00 Urine RBC (Auto) 1 /HPF 06/16/19 17:00 Urine Bacteria (Auto) TRACE /HPF 06/16/19 17:00 Squamous Epi Cells Auto 1 /HPF 06/16/19 17:00 Urine Ascorbic Acid NEGATIVE (NEGATIVE) 06/16/19 17:00 06/16/19 17:00 Troponin I < 0.012 Impressions: Head MRI 06/16/19 00:00 IMPRESSION: No acute infarct. Head CT 06/16/19 16:37 IMPRESSION: 1. No acute intracranial abnormality. 2. Right occipital scalp hematoma. EVIDENCE OF ACUTE STROKE: NO. Stroke Is this a Stroke Patient?: No Acute Heart Failure - Is this a Heart Failure Patient?: No
== END 2019-06-18 13:36 | disposition home health service (06) ==
LOC: ER 14:46 → EH 17:16 → 3S 19:11
PROVIDERS: ADMIT Internal Medicine; ATTEND Internal Medicine
DX: R55 Syncope and collapse (principal); F03.90 Unspecified dementia, unspecified severity, without behavioral disturbance, psychotic disturbance, mood disturbance, and anxiety; E11.9 Type 2 diabetes mellitus without complications; I10 Essential (primary) hypertension; R00.1 Bradycardia, unspecified; S00.03XA Contusion of scalp, initial encounter; W10.9XXA Fall (on) (from) unspecified stairs and steps, initial encounter; Y92.531 Health care provider office as the place of occurrence of the external cause; H26.9 Unspecified cataract; M19.90 Unspecified osteoarthritis, unspecified site; E87.1 Hypo-osmolality and hyponatremia; I45.10 Unspecified right bundle-branch block; Z79.899 Other long term (current) drug therapy; Z79.82 Long term (current) use of aspirin; Z79.84 Long term (current) use of oral hypoglycemic drugs
CPT/HCPCS: 99285; 36415 ×2; 82962 ×3; 84443; 85025; 85027; 80048; 80053; 81001; 84484; 82533; 83036; 80061; 93306; 70551; 70450; 93005 ×2; 93010 ×2; 97530; 97162; G0378 ×4; C1758; A9270 ×14; J1644 ×3; J7030; 72125; 99284; J3490